=== PATIENT | male | born 1935 | race Caucasian/White ===

== ENCOUNTER → 2016-10-16 | Day surgery (SDC) | payer MEDICARE ==
[~2016-10-16] MED LIST: ACYCLOVIR800 MG PO; AMITIZA8 MCG PO; AUGMENTIN 875875 MG PO; BACTRIM DS 8001 TA1 PO; CEFUROXIME AXE250 MG PO; DOK100 M1 PO; DOXYCYCLINE HY100 M3 PO; DOXYCYCLINE100 M3 PO; DULCOLAX STOOL100 MG PO; FLOMAX0.4 MG PO; HYDROCODONE BIT1 T11 PO; LEVOFLOXACIN500 MG PO; LISINOPRIL10 M1 PO; MACROBID100 M1 PO; MIRALAX POWDER17 G1 PO; MIRALAX17 GM PO; Nizoral 2%15 GM T; Nystatin Cream15 GM T; PRILOSEC20 M1 PO; PRILOSEC20 MG PO; PRINIVIL20 MG PO; SENNA8.6 MG PO; SENOKOT1 TAB PO; TAMSULOSIN HCL0.4 MG PO; TRAMADOL HCL50 MG PO; TRIAMTERENE/HCT1 CAP PO; ULTRAM50 MG PO; VIBRAMYCIN100 MG PO; VICODIN 5/500 505 MG PO
[2016-10-16 10:23] LABS: PROTHROMBIN TIME 10.1 SECONDS (9.0-12.4)
== END | disposition home or self-care (01) ==
LOC: SDC 03:41
PROVIDERS: Family Medicine
DX: E04.1 Nontoxic single thyroid nodule (principal)

== ENCOUNTER → 2017-07-05 | Outpatient (CLI) | payer MEDICARE | END | disposition home or self-care (01) | LOC: LAB 09:16 | DX: R19.5 Other fecal abnormalities (principal) ==

== ENCOUNTER 2018-05-17 12:12 | Emergency (ER) | payer MEDICARE ==
[~2018-05-17] VITALS: Ht 175.2 cm; Wt 108.9 kg
--- NOTE | ~2018-05-17 | EKG ---
[place], [place] ELECTROCARDIOGRAM REPORT NAME: NORMAN GAMEZ UNIT #: [id number] ROOM: DOCTOR: EPIPHANY DRAFT REPORT BIRTHDATE: [birth year] [facility] Test Date: 2018-05-17 Test Time: 12:33:07 Pat Name: NORMAN GAMEZ Department: Room: Gender: Shactor: : 1935 Requested By: POOL BURNS Order Number: [id number] Reading MD: Eduard Birmingham MD Measurements Intervals [place] Rate: 80 P: 0 [place]: 236 QRS: 55 QRSD: 104 T: 22 QT: 374 QTc: 432 Interpretive Statements Sinus rhythm Prolonged [place] interval- first degree block RSR' in V1 or V2, right VCD or RVH Baseline wander in lead(s) V1 Electronically Signed On 05-19-2018 7:21:10 PST by Eduard Birmingham MD CM:EKGRPT:ELECTROCARDIOGRAM REPORT [id number] POOL BURNS EPIPHANY DRAFT REPORT POOL BURNS
[2018-05-17 12:46] LABS: BASO # 0.1 10*3/uL (0.0-0.1); BASO % 1.1 % (0.0-1.0); EOS # 0.1 10*3/uL (0.0-0.4); EOS % 1.4 % (1.0-4.0); HEMATOCRIT 41.5 % (42.0-52.0); HEMOGLOBIN 14.4 g/dl (14.0-18.0); LYMPH # 1.8 10*3/uL (1.3-4.4); LYMPH % 27.5 % (27.0-41.0); MEAN CELL VOLUME 96.1 fl (80.0-94.0); MEAN CORPUSCULAR HGB 33.3 pg (27.0-31.0); MEAN CORPUSCULAR HGB CONC 34.7 g/dl (33.0-37.0); MONO # 0.7 10*3/uL (0.1-1.0); MONO % 10.9 % (3.0-9.0); NEUT # 3.9 10*3/uL (2.3-7.9); NEUT % 58.9 % (47.0-73.0); PLATELET COUNT AUTOMATED 139 10*3/uL (130-400); RED BLOOD COUNT 4.32 10*6/uL (4.50-5.90); RED CELL DISTRI WIDTH 12.6 % (0-14.5); WHITE BLOOD COUNT 6.6 10*3/uL (4.8-10.8)
[2018-05-17 12:55] LABS: ACT PARTIAL THROMBO TIME 24.3 SECONDS (20.8-31.5); INTERNATIONAL NORM RATIO 0.9 (2.0-3.5)
[2018-05-17 13:03] LABS: ALBUMIN 3.8 gm/dl (3.1-4.5); ALKALINE PHOSPHATASE 84 U/L (45-117); BUN 17 mg/dl (7-24); CHLORIDE 104 mmol/L (98-107); CREATININE 1.04 mg/dL (0.70-1.30); POTASSIUM 4.3 mmol/L (3.5-5.1); SGOT/AST 24 IU/L (3-35); SGPT/ALT 37 U/L (12-78); SODIUM 137 mmol/L (136-145); TOTAL PROTEIN 6.6 gm/dL (6.4-8.2); TROPONIN I < 0.015 ng/ml (<0.045)
== END 2018-05-17 14:25 | disposition left against medical advice (07) ==
LOC: ED 12:12
PROVIDERS: Nurse Practitioner Family
DX: R53.1 Weakness (principal); R20.0 Anesthesia of skin; R79.1 Abnormal coagulation profile; Z79.899 Other long term (current) drug therapy

== ENCOUNTER → 2018-06-05 | Outpatient (CLI) | payer MEDICARE | END | disposition home or self-care (01) | LOC: CT 08:00 | DX: N28.1 Cyst of kidney, acquired (principal); K57.30 Diverticulosis of large intestine without perforation or abscess without bleeding; N32.3 Diverticulum of bladder; K76.89 Other specified diseases of liver; K59.00 Constipation, unspecified; Z90.49 Acquired absence of other specified parts of digestive tract ==

== ENCOUNTER → 2018-07-18 | Day surgery (SDC) | payer MEDICARE ==
[~2018-07-18] VITALS: Ht 175.2 cm; Wt 104.3 kg
[~2018-07-18] MED LIST changes: +COLACE100 MG PO
--- NOTE | ~2018-07-18 | O ---
[place], [place] OPERATIVE NOTE NAME: NORMAN GAMEZ UNIT #: [id number] ROOM: DOCTOR: MARBELLA RIVERA,[facility] BIRTHDATE: [birth year] DOS: 07/18/2018 INDICATIONS: This is an 82-year-old patient who presented with chief complaint of constipation, dyspepsia, history of partial colectomy. ALLERGIES: No known medication. FAMILY HISTORY: Noncontributory. PAST SURGICAL HISTORY: Colon surgery, details unknown. PAST MEDICAL HISTORY: Hypertension and BPH. SOCIAL HISTORY: Nonsmoker. Alcohol consumer. PROCEDURE: Today's procedure part of investigation is panendoscopy and colonoscopy. PREMEDICATION: Propofol. SCOPE: Olympus forward-viewing gastroscope Q10 video. REPORT: After putting the patient in left lateral position and application of lubricant to the scope, the scope was introduced. Thereafter, under direct visualization, I advanced through the length of the esophagus without difficulty. A 3.5 cm hiatal hernia was noticed. Gastric pouch was entered. Gastritis seen. Antral biopsy obtained. Duodenal bulb, second and third part within normal limits. The patient was gradually extubated and tolerated the procedure well. IMPRESSION: Gastritis, status post biopsy, hiatal hernia. PLAN AND DISCUSSION: Elevation of the head of the bed 6 inch all time, continuation with Prilosec, decreasing alcohol consumption and follow up as outpatient. Antireflux is requested. Gaviscon as antacid of choice. INDICATIONS: The patient has presented with chief complaint of constipation, status post colonic surgery in the past. PROCEDURE: Today's procedure part of investigation is colonoscopy and photographic series. PREMEDICATION: Propofol. SCOPE: Olympus forward-viewing colonoscope 10L video. REPORT: After putting the patient in left lateral position and application of lubricant to rectal pouch and digital examination, scope was introduced. Thereafter, under direct visualization, advanced through the length of colon without difficulty. Diverticulosis of sigmoid colon was noticed anastomotic [place], [place] OPERATIVE NOTE NAME: NORMAN GAMEZ [place] UNIT #: [id number] ROOM: DOCTOR: MARBELLA RIVERA,[facility] BIRTHDATE: [birth year] site about splenic anatomy was noticed, which appears to be benign diversion of the anastomotic site was noticed. Base of the cecum explored, appendiceal orifice and ileocecal valve intact was photographed. The patient was gradually extubated and tolerated the procedure well. PLAN AND DISCUSSION: Diverticulosis, otherwise, status post anastomotic site, which is benign in colon as far as constipation is concerned, I am going to advise this patient to reduce his alcohol and increases vegetables and fruits in the diet and Colace 100 mg daily to begin with; otherwise, 200 mg at bedtime with suffice management. TREVOR TYSON MD CM:OPRECORD:OPERATIVE NOTE [id number] TREVOR TYSON MD 07/18/18 1154 interface
[2018-07-18 11:28] VITALS: BP 114/67
[2018-07-18 11:43] VITALS: BP 119/53
[2018-07-18 12:00] VITALS: BP 110/59
== END | disposition home or self-care (01) ==
LOC: SDC 07-15 08:45
DX: K57.30 Diverticulosis of large intestine without perforation or abscess without bleeding (principal); K29.50 Unspecified chronic gastritis without bleeding; K44.9 Diaphragmatic hernia without obstruction or gangrene; I10 Essential (primary) hypertension; K21.9 Gastro-esophageal reflux disease without esophagitis; E66.9 Obesity, unspecified; Z68.33 Body mass index [BMI] 33.0-33.9, adult; Z96.643 Presence of artificial hip joint, bilateral; Z98.890 Other specified postprocedural states; Z79.899 Other long term (current) drug therapy; Z72.89 Other problems related to lifestyle; Z87.440 Personal history of urinary (tract) infections; Z90.49 Acquired absence of other specified parts of digestive tract; Z83.3 Family history of diabetes mellitus

== ENCOUNTER 2018-12-08 20:14 | Emergency (ER) | payer MEDICARE ==
[~2018-12-08] VITALS: Ht 175.2 cm; Wt 106.6 kg
[2018-12-08 22:10] LABS: BILIRUBIN NEGATIVE (NEGATIVE); BLOOD 2+ (NEGATIVE); CLARITY CLOUDY (CLEAR); COLOR YELLOW (YELLOW); GLUCOSE NEGATIVE (NEGATIVE); KETONE NEGATIVE (NEGATIVE); LEUKO ESTERASE 2+ (NEGATIVE); NITRITE NEGATIVE (NEGATIVE); UROBILINOGEN 0.2 E.U./dl (0.2-1.0)
[2018-12-08 23:15] LABS: BACTERIA 4+; RBC 31-40 rbc/hpf (0-2); WBC 21-30 wbc/hpf (0-5)
[2018-12-09] MEDS ORDERED: LEVOFLOXACIN500 MG PO (02:04)
== END 2018-12-09 02:04 | disposition home or self-care (01) ==
LOC: ED 20:14
PROVIDERS: Emergency Medicine Emergency Medical Services
DX: R33.9 Retention of urine, unspecified (principal); N39.0 Urinary tract infection, site not specified; N40.0 Benign prostatic hyperplasia without lower urinary tract symptoms; K21.9 Gastro-esophageal reflux disease without esophagitis; I10 Essential (primary) hypertension; Z90.49 Acquired absence of other specified parts of digestive tract; Z98.890 Other specified postprocedural states; Z96.641 Presence of right artificial hip joint; Z79.899 Other long term (current) drug therapy

== ENCOUNTER 2018-12-31 19:01 | Emergency (ER) | payer MEDICARE ==
[~2018-12-31] VITALS: Wt 103.9 kg
[2018-12-31 19:36] LABS: BASO # 0.1 10*3/uL (0.0-0.1); BASO % 0.7 % (0.0-1.0); EOS # 0.1 10*3/uL (0.0-0.4); EOS % 1.4 % (1.0-4.0); HEMOGLOBIN 13.6 g/dl (14.0-18.0); LYMPH % 11.6 % (27.0-41.0); MEAN CELL VOLUME 98.5 fl (80.0-94.0); MEAN CORPUSCULAR HGB 33.5 pg (27.0-31.0); MEAN PLATELET VOLUME 11.1 fl (9.6-12.3); MONO # 0.9 10*3/uL (0.1-1.0); NEUT # 6.7 10*3/uL (2.3-7.9); NEUT % 76.1 % (47.0-73.0); PLATELET COUNT AUTOMATED 139 10*3/uL (130-400); RED BLOOD COUNT 4.06 10*6/uL (4.50-5.90); RED CELL DISTRI WIDTH 12.9 % (0-14.5); WHITE BLOOD COUNT 8.8 10*3/uL (4.8-10.8)
[2018-12-31 19:53] LABS: ALBUMIN 3.5 gm/dl (3.1-4.5); ALKALINE PHOSPHATASE 95 U/L (45-117); BUN 22 mg/dl (7-24); CHLORIDE 109 mmol/L (98-107); CREATININE 1.13 mg/dL (0.70-1.30); POTASSIUM 4.5 mmol/L (3.5-5.1); SGOT/AST 23 IU/L (3-35); SGPT/ALT 49 U/L (12-78); SODIUM 141 mmol/L (136-145); TOTAL PROTEIN 6.1 gm/dL (6.4-8.2)
== END 2018-12-31 21:16 | disposition home or self-care (01) ==
LOC: ED 19:01
PROVIDERS: Physician Assistant
DX: E86.0 Dehydration (principal); Z79.899 Other long term (current) drug therapy

== ENCOUNTER 2019-02-13 06:00 | Emergency (ER) | payer MEDICARE ==
[~2019-02-13] VITALS: Ht 175.2 cm; Wt 104.3 kg
--- NOTE | ~2019-02-13 | EKG ---
[place], [place] ELECTROCARDIOGRAM REPORT NAME: NORMAN GAMEZ UNIT #: [id number] ROOM: DOCTOR: EPIPHANY DRAFT REPORT BIRTHDATE: [birth year] [facility] Test Date: 2019-02-13 Test Time: 06:44:28 Pat Name: NORMAN GAMEZ Department: Room: Gender: Operations Chief: Tatyana Waldron : 1935 Requested By: MANUEL RESENDIZ Order Number: [id number] Reading MD: Martita Lakhani MD Measurements Intervals [place] Rate: 61 P: 55 [place]: 266 QRS: 63 QRSD: 105 T: 28 QT: 419 QTc: 422 Interpretive Statements Sinus rhythm Ventricular premature complex Prolonged [place] interval Baseline wander in lead(s) II,III,aVF Compared to ECG 05/17/2018 12:33:07 Ventricular premature complex(es) now present Right ventricular hypertrophy no longer present Electronically Signed On 02-13-2019 13:03:06 PDT by Martita Lakhani MD CM:EKGRPT:ELECTROCARDIOGRAM REPORT [id number] MANUEL RESENDIZ MD EPIPHANY DRAFT REPORT MANUEL RESENDIZ MD
[2019-02-13 06:43] LABS: BILIRUBIN NEGATIVE (NEGATIVE); BLOOD 2+ (NEGATIVE); CLARITY CLOUDY (CLEAR); COLOR YELLOW (YELLOW); GLUCOSE NEGATIVE (NEGATIVE); KETONE NEGATIVE (NEGATIVE); LEUKO ESTERASE 3+ (NEGATIVE); NITRITE NEGATIVE (NEGATIVE); UROBILINOGEN 0.2 E.U./dl (0.2-1.0)
[2019-02-13 06:55] LABS: WBC TNTC wbc/hpf (0-5)
[2019-02-13 06:56] LABS: BACTERIA 3+
[2019-02-13 07:02] LABS: BASO # 0.1 10*3/uL (0.0-0.1); BASO % 0.9 % (0.0-1.0); EOS # 0.2 10*3/uL (0.0-0.4); EOS % 3.2 % (1.0-4.0); HEMATOCRIT 43.9 % (42.0-52.0); HEMOGLOBIN 14.6 g/dl (14.0-18.0); LYMPH # 2.3 10*3/uL (1.3-4.4); LYMPH % 31.4 % (27.0-41.0); MEAN CELL VOLUME 99.8 fl (80.0-94.0); MEAN CORPUSCULAR HGB 33.2 pg (27.0-31.0); MEAN CORPUSCULAR HGB CONC 33.3 g/dl (33.0-37.0); MEAN PLATELET VOLUME 11.1 fl (9.6-12.3); MONO % 12.9 % (3.0-9.0); NEUT # 3.8 10*3/uL (2.3-7.9); NEUT % 51.5 % (47.0-73.0); PLATELET COUNT AUTOMATED 140 10*3/uL (130-400); RED CELL DISTRI WIDTH 13.2 % (0-14.5); WHITE BLOOD COUNT 7.5 10*3/uL (4.8-10.8)
[2019-02-13 07:11] LABS: ACT PARTIAL THROMBO TIME 24.4 SECONDS (20.0-32.1); INTERNATIONAL NORM RATIO 0.9 (2.0-3.5)
[2019-02-13 07:24] LABS: ALBUMIN 3.5 gm/dl (3.1-4.5); ALKALINE PHOSPHATASE 112 U/L (45-117); BUN 24 mg/dl (7-24); CHLORIDE 105 mmol/L (98-107); CREATININE 1.19 mg/dL (0.70-1.30); LIPASE 95 U/L (73-393); POTASSIUM 4.3 mmol/L (3.5-5.1); SGOT/AST 31 IU/L (3-35); SGPT/ALT 55 U/L (12-78); SODIUM 137 mmol/L (136-145); TOTAL PROTEIN 6.6 gm/dL (6.4-8.2)
[2019-02-13 07:28] LABS: TROPONIN I < 0.015 ng/ml (<0.045)
[2019-02-13] MEDS ORDERED: CIPRO500 MG PO (07:37)
== END 2019-02-13 08:42 | disposition home or self-care (01) ==
LOC: ED 06:00
PROVIDERS: Emergency Medicine Emergency Medical Services
DX: N39.0 Urinary tract infection, site not specified (principal); I10 Essential (primary) hypertension; K21.9 Gastro-esophageal reflux disease without esophagitis; R79.1 Abnormal coagulation profile; Z79.899 Other long term (current) drug therapy

== ENCOUNTER 2019-04-02 13:34 | Emergency (ER) | payer MEDICARE ==
[~2019-04-02] VITALS: Ht 175.2 cm; Wt 102.1 kg
[~2019-04-02 13:34] MED LIST changes: +CIPRO500 MG PO
[2019-04-02 15:15] LABS: BASO # 0.1 10*3/uL (0.0-0.1); BASO % 0.7 % (0.0-1.0); EOS # 0.1 10*3/uL (0.0-0.4); EOS % 1.3 % (1.0-4.0); HEMATOCRIT 43.5 % (42.0-52.0); HEMOGLOBIN 14.9 g/dl (14.0-18.0); LYMPH # 2.3 10*3/uL (1.3-4.4); LYMPH % 26.9 % (27.0-41.0); MEAN CELL VOLUME 96.7 fl (80.0-94.0); MEAN CORPUSCULAR HGB 33.1 pg (27.0-31.0); MEAN CORPUSCULAR HGB CONC 34.3 g/dl (33.0-37.0); MEAN PLATELET VOLUME 11.1 fl (9.6-12.3); MONO % 11.1 % (3.0-9.0); NEUT # 5.2 10*3/uL (2.3-7.9); NEUT % 59.8 % (47.0-73.0); PLATELET COUNT AUTOMATED 167 10*3/uL (130-400); RED CELL DISTRI WIDTH 12.9 % (0-14.5); WHITE BLOOD COUNT 8.7 10*3/uL (4.8-10.8)
[2019-04-02 15:32] LABS: ALBUMIN 3.9 gm/dl (3.1-4.5); ALKALINE PHOSPHATASE 111 U/L (45-117); BUN 12 mg/dl (7-24); CHLORIDE 101 mmol/L (98-107); CREATININE 1.08 mg/dL (0.70-1.30); LIPASE 75 U/L (73-393); POTASSIUM 4.1 mmol/L (3.5-5.1); SGOT/AST 24 IU/L (3-35); SGPT/ALT 40 U/L (12-78); SODIUM 133 mmol/L (136-145)
[2019-04-02 15:33] LABS: INTERNATIONAL NORM RATIO 0.9 (2.0-3.5)
[2019-04-02 15:47] LABS: BILIRUBIN NEGATIVE (NEGATIVE); BLOOD 2+ (NEGATIVE); CLARITY CLOUDY (CLEAR); COLOR YELLOW (YELLOW); GLUCOSE NEGATIVE (NEGATIVE); KETONE TRACE (NEGATIVE); SPECIFIC GRAVITY 1.005 (1.005-1.030)
[2019-04-02 15:48] LABS: BACTERIA 4+; LEUKO ESTERASE 3+ (NEGATIVE); NITRITE NEGATIVE (NEGATIVE); UROBILINOGEN 0.2 E.U./dl (0.2-1.0); WBC TNTC wbc/hpf (0-5)
[2019-04-02] MEDS ORDERED: KEFLEX500 M1 PO (19:09)
== END 2019-04-02 20:14 | disposition home or self-care (01) ==
LOC: ED 13:34
PROVIDERS: Nurse Practitioner
DX: K76.89 Other specified diseases of liver (principal); N30.90 Cystitis, unspecified without hematuria; Z79.899 Other long term (current) drug therapy

== ENCOUNTER 2019-04-04 17:32 | Emergency (ER) | payer MEDICARE ==
[~2019-04-04] VITALS: Ht 175.2 cm; Wt 102.1 kg
[~2019-04-04 17:32] MED LIST changes: +KEFLEX500 M1 PO
[2019-04-04] MEDS ORDERED: CIPRO500 MG PO (18:14)
== END 2019-04-04 18:22 | disposition home or self-care (01) ==
LOC: ED 17:32
DX: N39.0 Urinary tract infection, site not specified (principal); K21.9 Gastro-esophageal reflux disease without esophagitis; I10 Essential (primary) hypertension; Z79.899 Other long term (current) drug therapy; Z90.49 Acquired absence of other specified parts of digestive tract

== ENCOUNTER 2019-09-07 17:22 | Observation (INO) | payer MEDICARE ==
[~2019-09-07] VITALS: Ht 175.2 cm; Wt 105.4 kg
[2019-09-07 18:03] LABS: BASO # 0.1 10*3/uL (0.0-0.1); BASO % 0.9 % (0.0-1.0); EOS # 0.1 10*3/uL (0.0-0.4); EOS % 1.8 % (1.0-4.0); HEMATOCRIT 40.8 % (42.0-52.0); HEMOGLOBIN 13.8 g/dl (14.0-18.0); LYMPH # 2.3 10*3/uL (1.3-4.4); LYMPH % 28.7 % (27.0-41.0); MEAN CELL VOLUME 97.6 fl (80.0-94.0); MEAN CORPUSCULAR HGB CONC 33.8 g/dl (33.0-37.0); MEAN PLATELET VOLUME 11.2 fl (9.6-12.3); NEUT # 4.5 10*3/uL (2.3-7.9); NEUT % 56.5 % (47.0-73.0); PLATELET COUNT AUTOMATED 142 10*3/uL (130-400); RED BLOOD COUNT 4.18 10*6/uL (4.50-5.90); RED CELL DISTRI WIDTH 13.1 % (0-14.5); WHITE BLOOD COUNT 7.9 10*3/uL (4.8-10.8)
[2019-09-07 18:13] LABS: ACT PARTIAL THROMBO TIME 24.7 SECONDS (20.0-32.1); INTERNATIONAL NORM RATIO 0.9 (2.0-3.5)
[2019-09-07 18:20] LABS: ALBUMIN 3.6 gm/dl (3.1-4.5); ALKALINE PHOSPHATASE 87 U/L (45-117); BUN 15 mg/dl (7-24); CHLORIDE 105 mmol/L (98-107); CREATININE 1.13 mg/dL (0.70-1.30); POTASSIUM 3.8 mmol/L (3.5-5.1); SGOT/AST 25 IU/L (3-35); SGPT/ALT 44 U/L (12-78); SODIUM 136 mmol/L (136-145); TOTAL PROTEIN 6.4 gm/dL (6.4-8.2)
[2019-09-07 18:25] LABS: TROPONIN I < 0.015 ng/ml (<0.045)
[2019-09-07 18:40] VITALS: BP 124/58
[2019-09-07] MEDS ORDERED: MILK OF MA400 MG/5 M PO (19:12)
[2019-09-07 20:00] VITALS: BP 155/67
--- NOTE | 2019-09-07 20:00 | NUR ---
A 83, admitted to 4E, under the services of JANIE Painter MD with a diagnosis of CHEST PAIN. Chief complaint is LEFT ARM AND HAND PAIN. Patient arrived via ambulatory from ER. Monitor applied. Initial assessment completed. Vital signs taken and recorded. JANIE PAINTER MD notified of admission to the unit. Orders received. See assessment for past medical history, medications and allergies. Patient and/or family oriented to unit. visitation policy reviewed. Clothing/patient valuable form completed. YANET SANTIAGO
[2019-09-07 20:30] VITALS: BP 155/67
[2019-09-08] VITALS: BP 129/51
[2019-09-08 06:53] LABS: BASO % 0.7 % (0.0-1.0); EOS # 0.2 10*3/uL (0.0-0.4); EOS % 2.6 % (1.0-4.0); HEMATOCRIT 42.3 % (42.0-52.0); LYMPH # 1.8 10*3/uL (1.3-4.4); LYMPH % 30.6 % (27.0-41.0); MEAN CELL VOLUME 98.1 fl (80.0-94.0); MEAN CORPUSCULAR HGB 32.5 pg (27.0-31.0); MEAN CORPUSCULAR HGB CONC 33.1 g/dl (33.0-37.0); MEAN PLATELET VOLUME 11.7 fl (9.6-12.3); MONO # 0.7 10*3/uL (0.1-1.0); NEUT # 3.2 10*3/uL (2.3-7.9); NEUT % 53.9 % (47.0-73.0); PLATELET COUNT AUTOMATED 125 10*3/uL (130-400); RED BLOOD COUNT 4.31 10*6/uL (4.50-5.90); RED CELL DISTRI WIDTH 12.9 % (0-14.5); WHITE BLOOD COUNT 5.9 10*3/uL (4.8-10.8)
[2019-09-08 07:13] LABS: BUN 13 mg/dl (7-24); CHLORIDE 107 mmol/L (98-107); CHOLESTEROL 181 mg/dL (<200); CREATININE 1.01 mg/dL (0.70-1.30); HDL CHOLESTEROL 61 mg/dl (40-60); LDL CHOLESTEROL 101 mg/dL (9-159); POTASSIUM 4.2 mmol/L (3.5-5.1); SODIUM 139 mmol/L (136-145); TRIGLYCERIDES 97 mg/dl (<150); VLDL CHOLESTEROL 19 mg/dL (6-40)
[2019-09-08 07:34] LABS: VITAMIN D, 25-HYDROXY 16.7 ng/mL (30-100)
--- NOTE | 2019-09-08 09:00 | NUR ---
Waistline Joiner Lockstitch in to talk to patient. Patient states lives at home with . There are two steps in the home. Physician: antonio wallace Pharmacy: [facility] Home health services: none Patient's level of ADLs: INDEPENDENT Patient has working utilities: all working DME: none Follow-up physician's appointment after d/c: will be made by hospitalist nurse director upon discharge Does patient want to access PORTAL?: no Discharge plan discussed with patient, patient is states he lives at home with his , he is independent in adls and ambulation, drives, he is very upset at this time due to not having his testing done yet this morning, patient states he will sign himself out if nothing is done in the next few minutes, attempted to calm patient and also notified his nurse to check on the time of his testing, case management will follow for any home needs . TAMARA NELSON
[2019-09-08] MEDS ORDERED: ATORVASTATIN CA20 M1 PO (10:17)
[2019-09-08] MEDS ORDERED: NITROSTAT0.4 MG SL (10:17)
--- NOTE | 2019-09-08 11:01 | NUR ---
[facility] Discharge instructions reviewed with patient/family. Patient receptive and verbalizes understanding. Follow-up care arranged. Written instructions given to patient/family. MICHEAL AGUILAR
== END 2019-09-08 11:01 | disposition home or self-care (01) ==
LOC: ED 17:22 → EDHOLD 19:23 → 4E 19:23
PROVIDERS: Emergency Medicine; Student in an Organized Health Care Education/Training Program; ADMIT Family Medicine
DX: I44.0 Atrioventricular block, first degree (principal); R00.1 Bradycardia, unspecified; M79.602 Pain in left arm; R73.9 Hyperglycemia, unspecified; N40.0 Benign prostatic hyperplasia without lower urinary tract symptoms; D53.9 Nutritional anemia, unspecified; I10 Essential (primary) hypertension; K21.9 Gastro-esophageal reflux disease without esophagitis; I65.21 Occlusion and stenosis of right carotid artery; E83.41 Hypermagnesemia; N40.1 Benign prostatic hyperplasia with lower urinary tract symptoms

== ENCOUNTER 2019-11-13 13:34 | Emergency (ER) | payer MEDICARE ==
[~2019-11-13] VITALS: Ht 175.2 cm; Wt 108.9 kg
[~2019-11-13 13:34] MED LIST changes: +ATORVASTATIN CA20 M1 PO; +MILK OF MA400 MG/5 M PO; +NITROSTAT0.4 MG SL
[2019-11-13 14:07] LABS: BASO # 0.1 10*3/uL (0.0-0.1); BASO % 0.9 % (0.0-1.0); EOS # 0.1 10*3/uL (0.0-0.4); EOS % 1.3 % (1.0-4.0); HEMATOCRIT 44.3 % (42.0-52.0); LYMPH # 1.9 10*3/uL (1.3-4.4); LYMPH % 28.6 % (27.0-41.0); MEAN CELL VOLUME 99.1 fl (80.0-94.0); MEAN CORPUSCULAR HGB 33.1 pg (27.0-31.0); MEAN CORPUSCULAR HGB CONC 33.4 g/dl (33.0-37.0); MEAN PLATELET VOLUME 11.2 fl (9.6-12.3); MONO # 0.9 10*3/uL (0.1-1.0); MONO % 12.7 % (3.0-9.0); NEUT # 3.8 10*3/uL (2.3-7.9); NEUT % 56.4 % (47.0-73.0); PLATELET COUNT AUTOMATED 148 10*3/uL (130-400); RED BLOOD COUNT 4.47 10*6/uL (4.50-5.90); WHITE BLOOD COUNT 6.8 10*3/uL (4.8-10.8)
[2019-11-13 14:16] LABS: INTERNATIONAL NORM RATIO 0.9 (2.0-3.5)
[2019-11-13 14:24] LABS: ALBUMIN 3.7 gm/dl (3.1-4.5); ALKALINE PHOSPHATASE 96 U/L (45-117); BUN 15 mg/dl (7-24); CHLORIDE 106 mmol/L (98-107); CREATININE 0.99 mg/dL (0.70-1.30); POTASSIUM 4.2 mmol/L (3.5-5.1); SGOT/AST 28 IU/L (3-35); SGPT/ALT 58 U/L (12-78); SODIUM 140 mmol/L (136-145); TOTAL PROTEIN 6.6 gm/dL (6.4-8.2)
[2019-11-13 14:31] LABS: TROPONIN I < 0.015 ng/ml (<0.045)
== END 2019-11-13 15:12 | disposition home or self-care (01) ==
LOC: ED 13:34
PROVIDERS: Emergency Medicine
DX: R42 Dizziness and giddiness (principal); R55 Syncope and collapse; I10 Essential (primary) hypertension; E78.00 Pure hypercholesterolemia, unspecified; K21.9 Gastro-esophageal reflux disease without esophagitis; Z79.899 Other long term (current) drug therapy; Z87.891 Personal history of nicotine dependence

== ENCOUNTER → 2019-12-31 | Outpatient (CLI) | payer MEDICARE | END | disposition home or self-care (01) | LOC: RAD 11:28 | DX: M25.552 Pain in left hip (principal); M54.5 Low back pain; M99.03 Segmental and somatic dysfunction of lumbar region; R26.2 Difficulty in walking, not elsewhere classified ==

== ENCOUNTER 2020-03-15 19:10 | Emergency (ER) | payer MEDICARE ==
[~2020-03-15] VITALS: Ht 175.2 cm; Wt 104.3 kg
[2020-03-15] MEDS ORDERED: CORTISPORIN SUS10 ML OT (19:53)
== END 2020-03-15 20:10 | disposition home or self-care (01) ==
LOC: ED 19:10
DX: S09.22XA Traumatic rupture of left ear drum, initial encounter (principal); K21.9 Gastro-esophageal reflux disease without esophagitis; I10 Essential (primary) hypertension; X58.XXXA Exposure to other specified factors, initial encounter; Y93.89 Activity, other specified; Y92.89 Other specified places as the place of occurrence of the external cause; Y99.8 Other external cause status

== ENCOUNTER 2020-07-13 22:03 | Emergency (ER) | payer MEDICARE ==
[~2020-07-13] VITALS: Ht 175.2 cm; Wt 104.3 kg
[~2020-07-13 22:03] MED LIST changes: +CORTISPORIN SUS10 ML OT
[2020-07-14] MEDS ORDERED: ZITHROMAX250 MG PO ×2 (00:18→01:33)
[2020-07-14 00:49] LABS: BASO # 0.1 10*3/uL (0.0-0.1); BASO % 0.9 % (0.0-1.0); EOS # 0.2 10*3/uL (0.0-0.4); EOS % 2.6 % (1.0-4.0); HEMATOCRIT 43.2 % (42.0-52.0); LYMPH # 2.5 10*3/uL (1.3-4.4); LYMPH % 35.5 % (27.0-41.0); MEAN CELL VOLUME 98.4 fl (80.0-94.0); MEAN CORPUSCULAR HGB 32.3 pg (27.0-31.0); MEAN CORPUSCULAR HGB CONC 32.9 g/dl (33.0-37.0); MONO % 14.2 % (3.0-9.0); NEUT # 3.3 10*3/uL (2.3-7.9); NEUT % 46.7 % (47.0-73.0); PLATELET COUNT AUTOMATED 157 10*3/uL (130-400); RED BLOOD COUNT 4.39 10*6/uL (4.50-5.90); RED CELL DISTRI WIDTH 13.1 % (0-14.5)
[2020-07-14 01:15] LABS: ALBUMIN 3.5 gm/dl (3.1-4.5); ALKALINE PHOSPHATASE 98 U/L (45-117); BUN 19 mg/dl (7-24); CHLORIDE 108 mmol/L (98-107); CREATININE 1.05 mg/dL (0.70-1.30); POTASSIUM 4.3 mmol/L (3.5-5.1); SGOT/AST 29 IU/L (3-35); SGPT/ALT 56 U/L (12-78); SODIUM 140 mmol/L (136-145); TOTAL PROTEIN 6.2 gm/dL (6.4-8.2)
== END 2020-07-14 02:41 | disposition home or self-care (01) ==
LOC: ED 22:03
PROVIDERS: Physician Assistant
DX: J18.9 Pneumonia, unspecified organism (principal); Z20.828 Contact with and (suspected) exposure to other viral communicable diseases; Z79.899 Other long term (current) drug therapy; Z87.891 Personal history of nicotine dependence

== ENCOUNTER 2020-10-15 00:07 | Emergency (ER) | payer MEDICARE ==
[~2020-10-15] VITALS: Ht 175.2 cm; Wt 99.8 kg
[~2020-10-15 00:07] MED LIST changes: +ZITHROMAX250 MG PO
[2020-10-15 03:22] LABS: BILIRUBIN Negative (Negative); BLOOD 2+ (Negative); CLARITY Cloudy (Clear); COLOR Yellow (Yellow); GLUCOSE Negative (Negative); KETONE Negative (Negative); LEUKO ESTERASE 2+ (Negative); NITRITE Negative (Negative); PH 5.5 (4.5-8.0); SPECIFIC GRAVITY 1.015 (1.001-1.030); UROBILINOGEN 0.2 E.U./dl (0.0-1.0)
[2020-10-15 04:19] LABS: BACTERIA 2+; MUCOUS 1+; WBC 16-20 wbc/hpf (0-5)
[2020-10-15] MEDS ORDERED: CEPHALEXIN500 M1 PO (05:40)
== END 2020-10-15 05:37 | disposition home or self-care (01) ==
LOC: ED 00:07
PROVIDERS: Emergency Medicine
DX: R33.9 Retention of urine, unspecified (principal); N39.0 Urinary tract infection, site not specified; Z79.899 Other long term (current) drug therapy; Z98.890 Other specified postprocedural states; Z96.641 Presence of right artificial hip joint; Z87.891 Personal history of nicotine dependence

== ENCOUNTER 2020-10-23 06:19 | Emergency (ER) | payer MEDICARE ==
[~2020-10-23] VITALS: Ht 170.1 cm; Wt 99.8 kg
[~2020-10-23 06:19] MED LIST changes: +CEPHALEXIN500 M1 PO
[2020-10-23 07:22] LABS: BASO # 0.1 10*3/uL (0.0-0.1); BASO % 0.9 % (0.0-1.0); EOS # 0.2 10*3/uL (0.0-0.4); HEMATOCRIT 45.3 % (42.0-52.0); LYMPH # 2.5 10*3/uL (1.3-4.4); LYMPH % 33.3 % (27.0-41.0); MEAN CELL VOLUME 98.9 fl (80.0-94.0); MEAN CORPUSCULAR HGB 32.5 pg (27.0-31.0); MEAN CORPUSCULAR HGB CONC 32.9 g/dl (33.0-37.0); MEAN PLATELET VOLUME 11.2 fl (9.6-12.3); MONO # 0.9 10*3/uL (0.1-1.0); MONO % 12.4 % (3.0-9.0); NEUT # 3.8 10*3/uL (2.3-7.9); NEUT % 50.3 % (47.0-73.0); PLATELET COUNT AUTOMATED 145 10*3/uL (130-400); RED BLOOD COUNT 4.58 10*6/uL (4.50-5.90); RED CELL DISTRI WIDTH 12.6 % (0-14.5); WHITE BLOOD COUNT 7.6 10*3/uL (4.8-10.8)
[2020-10-23 07:30] LABS: BUN 14 mg/dl (7-24); CHLORIDE 106 mmol/L (98-107); CREATININE 0.96 mg/dL (0.70-1.30); POTASSIUM 4.2 mmol/L (3.5-5.1); SODIUM 137 mmol/L (136-145)
[2020-10-23 08:58] LABS: BILIRUBIN Negative (Negative); BLOOD 1+ (Negative); CLARITY Clear (Clear); COLOR Yellow (Yellow); GLUCOSE Negative (Negative); KETONE Negative (Negative); LEUKO ESTERASE 2+ (Negative); NITRITE Negative (Negative); PH 5.5 (4.5-8.0); UROBILINOGEN 0.2 E.U./dl (0.0-1.0)
[2020-10-23 09:10] LABS: EPITHELIAL CELLS 21-30; RBC 16-20 rbc/hpf (0-2); WBC 31-40 wbc/hpf (0-5)
[2020-10-23 09:11] LABS: BACTERIA 2+; MUCOUS 1+
[2020-10-23] MEDS ORDERED: MACROBID100 M1 PO (09:31)
== END 2020-10-23 09:35 | disposition home or self-care (01) ==
LOC: ED 06:19
PROVIDERS: Internal Medicine
DX: R39.12 Poor urinary stream (principal); Z79.899 Other long term (current) drug therapy; Z98.890 Other specified postprocedural states; Z96.641 Presence of right artificial hip joint; Z87.891 Personal history of nicotine dependence

== ENCOUNTER 2020-10-23 22:35 | Emergency (ER) | payer MEDICARE | END 2020-10-23 23:35 | disposition home or self-care (01) | LOC: ED 22:35 | DX: R39.12 Poor urinary stream (principal) ==

== ENCOUNTER 2021-01-02 23:05 | Emergency (ER) | payer MEDICARE ==
[~2021-01-02] VITALS: Wt 104.3 kg
== END 2021-01-03 01:21 | disposition home or self-care (01) ==
LOC: ED 23:05
DX: M54.5 Low back pain (principal); Z79.899 Other long term (current) drug therapy; Z98.890 Other specified postprocedural states; Z96.641 Presence of right artificial hip joint

== ENCOUNTER 2021-02-21 17:34 | Inpatient (IN) | payer MEDICARE ==
[~2021-02-21] VITALS: Ht 175.2 cm; Wt 106.6 kg
[2021-02-21 18:34] VITALS: BP 131/67
[2021-02-21 20:10] LABS: MEAN CELL VOLUME 100.7 fl (80.0-94.0); MEAN CORPUSCULAR HGB 33.4 pg (27.0-31.0); MEAN CORPUSCULAR HGB CONC 33.2 g/dl (33.0-37.0); MEAN PLATELET VOLUME 11.4 fl (9.6-12.3); PLATELET COUNT AUTOMATED 148 10*3/uL (130-400); RED BLOOD COUNT 4.37 10*6/uL (4.50-5.90); RED CELL DISTRI WIDTH 13.3 % (0-14.5)
[2021-02-21 20:21] LABS: BILIRUBIN Negative (Negative); BLOOD 2+ (Negative); CLARITY Turbid (Clear); COLOR Yellow (Yellow); GLUCOSE Negative (Negative); KETONE Trace (Negative); LEUKO ESTERASE 3+ (Negative); NITRITE Negative (Negative); PH 5.5 (4.5-8.0); SPECIFIC GRAVITY 1.025 (1.001-1.030)
[2021-02-21 20:26] LABS: ALBUMIN 3.7 gm/dl (3.1-4.5); ALKALINE PHOSPHATASE 125 U/L (45-117); BUN 19 mg/dl (7-24); CHLORIDE 107 mmol/L (98-107); CREATININE 0.88 mg/dL (0.70-1.30); POTASSIUM 3.9 mmol/L (3.5-5.1); SGOT/AST 22 IU/L (3-35); SGPT/ALT 58 U/L (12-78); SODIUM 139 mmol/L (136-145); TOTAL PROTEIN 6.8 gm/dL (6.4-8.2)
[2021-02-21 20:29] LABS: BASOPHILS 2 % (0-1); TOTAL CELLS COUNTED 100 #CELLS
[2021-02-21 20:30] LABS: PLATELET SUFFICIENCY NORMAL (NORMAL)
[2021-02-21 20:40] LABS: BACTERIA 4+; WBC TNTC wbc/hpf (0-5)
[2021-02-21 21:13] VITALS: BP 115/63
[2021-02-21 22:24] VITALS: BP 134/62
[2021-02-21 23:15] VITALS: BP 138/70
[2021-02-22 03:29] VITALS: BP 124/62
[2021-02-22 05:55] LABS: ALBUMIN 3.1 gm/dl (3.1-4.5); ALKALINE PHOSPHATASE 104 U/L (45-117); BUN 18 mg/dl (7-24); CHLORIDE 107 mmol/L (98-107); CREATININE 0.79 mg/dL (0.70-1.30); POTASSIUM 4.2 mmol/L (3.5-5.1); SGOT/AST 13 IU/L (3-35); SGPT/ALT 44 U/L (12-78); SODIUM 139 mmol/L (136-145); TOTAL PROTEIN 5.6 gm/dL (6.4-8.2)
[2021-02-22 05:57] VITALS: BP 128/80
[2021-02-22 06:11] LABS: BASO % 0.3 % (0.0-1.0); EOS % 0.1 % (1.0-4.0); HEMATOCRIT 40.1 % (42.0-52.0); LYMPH # 2.1 10*3/uL (1.3-4.4); LYMPH % 14.4 % (27.0-41.0); MEAN CELL VOLUME 102.6 fl (80.0-94.0); MEAN CORPUSCULAR HGB 33.8 pg (27.0-31.0); MEAN CORPUSCULAR HGB CONC 32.9 g/dl (33.0-37.0); MONO # 1.4 10*3/uL (0.1-1.0); MONO % 9.6 % (3.0-9.0); NEUT # 10.8 10*3/uL (2.3-7.9); PLATELET COUNT AUTOMATED 127 10*3/uL (130-400); RED BLOOD COUNT 3.91 10*6/uL (4.50-5.90); RED CELL DISTRI WIDTH 13.3 % (0-14.5); WHITE BLOOD COUNT 14.3 10*3/uL (4.8-10.8)
[2021-02-22] MEDS ORDERED: CETIRIZINE HYDR10 MG PO (07:35)
[2021-02-22] MEDS ORDERED: OMEPRAZOLE MAGN20 MG PO (07:36)
[2021-02-22] MEDS ORDERED: TAMSULOSIN HCL0.4 MG PO (07:36)
[2021-02-22] MEDS ORDERED: OMNICEF300 MG PO (10:36)
== END 2021-02-22 10:52 | disposition home or self-care (01) | DRG 872 ==
LOC: ED 17:34 → EDHOLD 20:55
PROVIDERS: Internal Medicine; Physician Assistant; ADMIT Internal Medicine; ATTEND Internal Medicine
DX: A41.9 Sepsis, unspecified organism (principal); N30.01 Acute cystitis with hematuria; R65.20 Severe sepsis without septic shock; D75.89 Other specified diseases of blood and blood-forming organs; R73.9 Hyperglycemia, unspecified; N40.1 Benign prostatic hyperplasia with lower urinary tract symptoms; R33.8 Other retention of urine; I10 Essential (primary) hypertension; K21.9 Gastro-esophageal reflux disease without esophagitis; C67.9 Malignant neoplasm of bladder, unspecified; Z96.641 Presence of right artificial hip joint; I65.21 Occlusion and stenosis of right carotid artery; Z90.49 Acquired absence of other specified parts of digestive tract; Z87.891 Personal history of nicotine dependence; Z83.3 Family history of diabetes mellitus; Z80.8 Family history of malignant neoplasm of other organs or systems; Z79.899 Other long term (current) drug therapy

== ENCOUNTER 2021-02-26 07:49 | Emergency (ER) | payer MEDICARE ==
[~2021-02-26] VITALS: Ht 175.2 cm; Wt 99.8 kg
[~2021-02-26 07:49] MED LIST changes: +CETIRIZINE HYDR10 MG PO; +OMEPRAZOLE MAGN20 MG PO; +OMNICEF300 MG PO
[2021-02-26 08:44] LABS: BASO # 0.1 10*3/uL (0.0-0.1); BASO % 0.9 % (0.0-1.0); EOS # 0.2 10*3/uL (0.0-0.4); EOS % 3.6 % (1.0-4.0); HEMATOCRIT 43.3 % (42.0-52.0); LYMPH # 1.9 10*3/uL (1.3-4.4); LYMPH % 28.7 % (27.0-41.0); MEAN CELL VOLUME 100.2 fl (80.0-94.0); MEAN CORPUSCULAR HGB 33.1 pg (27.0-31.0); MEAN PLATELET VOLUME 10.6 fl (9.6-12.3); MONO # 0.7 10*3/uL (0.1-1.0); MONO % 11.2 % (3.0-9.0); NEUT # 3.6 10*3/uL (2.3-7.9); NEUT % 55.1 % (47.0-73.0); PLATELET COUNT AUTOMATED 202 10*3/uL (130-400); RED BLOOD COUNT 4.32 10*6/uL (4.50-5.90); RED CELL DISTRI WIDTH 12.7 % (0-14.5); WHITE BLOOD COUNT 6.4 10*3/uL (4.8-10.8)
[2021-02-26 08:59] LABS: ALBUMIN 3.4 gm/dl (3.1-4.5); ALKALINE PHOSPHATASE 119 U/L (45-117); BUN 13 mg/dl (7-24); CHLORIDE 106 mmol/L (98-107); CREATININE 0.82 mg/dL (0.70-1.30); POTASSIUM 4.4 mmol/L (3.5-5.1); SGOT/AST 24 IU/L (3-35); SGPT/ALT 50 U/L (12-78); SODIUM 137 mmol/L (136-145); TOTAL PROTEIN 6.8 gm/dL (6.4-8.2)
== END 2021-02-26 09:14 | disposition home or self-care (01) ==
LOC: ED 07:49
PROVIDERS: Emergency Medicine
DX: N50.89 Other specified disorders of the male genital organs (principal); R19.7 Diarrhea, unspecified; N39.0 Urinary tract infection, site not specified; R41.0 Disorientation, unspecified; C67.9 Malignant neoplasm of bladder, unspecified; K21.9 Gastro-esophageal reflux disease without esophagitis; I10 Essential (primary) hypertension; Z79.2 Long term (current) use of antibiotics; Z79.899 Other long term (current) drug therapy; Z90.49 Acquired absence of other specified parts of digestive tract; Z96.641 Presence of right artificial hip joint; Z98.890 Other specified postprocedural states; Z87.891 Personal history of nicotine dependence

== ENCOUNTER 2021-03-04 11:48 | Emergency (ER) | payer MEDICARE ==
[~2021-03-04] VITALS: Wt 104.3 kg
[2021-03-04 14:26] LABS: BASO # 0.1 10*3/uL (0.0-0.1); BASO % 0.5 % (0.0-1.0); EOS # 0.1 10*3/uL (0.0-0.4); EOS % 0.7 % (1.0-4.0); HEMATOCRIT 45.6 % (42.0-52.0); LYMPH # 2.7 10*3/uL (1.3-4.4); LYMPH % 24.7 % (27.0-41.0); MEAN CELL VOLUME 100.4 fl (80.0-94.0); MEAN CORPUSCULAR HGB CONC 32.9 g/dl (33.0-37.0); MEAN PLATELET VOLUME 10.3 fl (9.6-12.3); MONO % 8.6 % (3.0-9.0); NEUT # 7.2 10*3/uL (2.3-7.9); NEUT % 65.2 % (47.0-73.0); PLATELET COUNT AUTOMATED 240 10*3/uL (130-400); RED BLOOD COUNT 4.54 10*6/uL (4.50-5.90)
[2021-03-04 14:40] LABS: BUN 24 mg/dl (7-24); CHLORIDE 105 mmol/L (98-107); CREATININE 1.02 mg/dL (0.70-1.30); POTASSIUM 4.6 mmol/L (3.5-5.1); SODIUM 135 mmol/L (136-145)
== END 2021-03-04 15:11 | disposition short-term general hospital (02) ==
LOC: ED 11:48
PROVIDERS: Emergency Medicine
DX: R33.9 Retention of urine, unspecified (principal); K21.9 Gastro-esophageal reflux disease without esophagitis; I10 Essential (primary) hypertension; Z87.891 Personal history of nicotine dependence; Z79.899 Other long term (current) drug therapy

== ENCOUNTER 2021-03-11 19:46 | Emergency (ER) | payer MEDICARE ==
[~2021-03-11] VITALS: Ht 175.2 cm; Wt 99.8 kg
[2021-03-11 21:37] LABS: BASO # 0.1 10*3/uL (0.0-0.1); BASO % 0.7 % (0.0-1.0); EOS # 0.1 10*3/uL (0.0-0.4); HEMATOCRIT 46.2 % (42.0-52.0); LYMPH # 2.5 10*3/uL (1.3-4.4); LYMPH % 23.6 % (27.0-41.0); MEAN CELL VOLUME 99.6 fl (80.0-94.0); MEAN CORPUSCULAR HGB 33.2 pg (27.0-31.0); MEAN CORPUSCULAR HGB CONC 33.3 g/dl (33.0-37.0); MEAN PLATELET VOLUME 10.8 fl (9.6-12.3); MONO # 1.1 10*3/uL (0.1-1.0); MONO % 10.8 % (3.0-9.0); NEUT # 6.6 10*3/uL (2.3-7.9); NEUT % 63.6 % (47.0-73.0); PLATELET COUNT AUTOMATED 220 10*3/uL (130-400); RED BLOOD COUNT 4.64 10*6/uL (4.50-5.90); RED CELL DISTRI WIDTH 12.8 % (0-14.5); WHITE BLOOD COUNT 10.4 10*3/uL (4.8-10.8)
[2021-03-11 21:52] LABS: ALBUMIN 3.5 gm/dl (3.1-4.5); ALKALINE PHOSPHATASE 125 U/L (45-117); BUN 21 mg/dl (7-24); CHLORIDE 107 mmol/L (98-107); CREATININE 0.93 mg/dL (0.70-1.30); LIPASE 105 U/L (73-393); POTASSIUM 4.5 mmol/L (3.5-5.1); SGOT/AST 26 IU/L (3-35); SGPT/ALT 84 U/L (12-78); SODIUM 139 mmol/L (136-145)
[2021-03-12 00:33] LABS: BILIRUBIN Negative (Negative); BLOOD 3+ (Negative); CLARITY Cloudy (Clear); COLOR Dark Yellow (Yellow); GLUCOSE Negative (Negative); KETONE Trace (Negative); LEUKO ESTERASE 2+ (Negative); NITRITE Negative (Negative); SPECIFIC GRAVITY >= 1.030 (1.001-1.030)
[2021-03-12 00:51] LABS: RBC 31-40 rbc/hpf (0-2)
[2021-03-12 00:52] LABS: BACTERIA 3+; WBC 21-30 wbc/hpf (0-5)
[2021-03-12] MEDS ORDERED: SEPTDS PO (00:56)
[2021-03-21 14:08] LABS: ORGANISM ID Final report (.)
== END 2021-03-12 02:52 | disposition home or self-care (01) ==
LOC: ED 19:46
PROVIDERS: Physician Assistant
DX: T83.83XA Hemorrhage due to genitourinary prosthetic devices, implants and grafts, initial encounter (principal); N39.0 Urinary tract infection, site not specified; Z85.51 Personal history of malignant neoplasm of bladder; Z87.891 Personal history of nicotine dependence; Z96.641 Presence of right artificial hip joint; Z79.899 Other long term (current) drug therapy; Y92.89 Other specified places as the place of occurrence of the external cause

== ENCOUNTER 2021-03-25 19:26 | Emergency (ER) | payer MEDICARE ==
[~2021-03-25] VITALS: Ht 172.7 cm; Wt 83.9 kg
[~2021-03-25 19:26] MED LIST changes: +SEPTDS PO
== END 2021-03-26 00:52 | disposition home or self-care (01) ==
LOC: ED 19:26
DX: K59.00 Constipation, unspecified (principal); I10 Essential (primary) hypertension; K21.9 Gastro-esophageal reflux disease without esophagitis; Z87.891 Personal history of nicotine dependence; Z98.890 Other specified postprocedural states; Z90.49 Acquired absence of other specified parts of digestive tract; Z96.641 Presence of right artificial hip joint; Z79.899 Other long term (current) drug therapy

== ENCOUNTER 2021-04-01 12:00 | Emergency (ER) | payer MEDICARE ==
[~2021-04-01] VITALS: Ht 175.2 cm; Wt 99.8 kg
== END 2021-04-01 14:01 ==
LOC: ED 12:00
DX: K92.1 Melena (principal); R19.7 Diarrhea, unspecified; Z53.21 Procedure and treatment not carried out due to patient leaving prior to being seen by health care provider

== ENCOUNTER 2021-04-02 10:52 | Emergency (ER) | payer MEDICARE ==
[2021-04-02 12:40] LABS: BASO # 0.1 10*3/uL (0.0-0.1); BASO % 0.9 % (0.0-1.0); EOS # 0.1 10*3/uL (0.0-0.4); EOS % 0.8 % (1.0-4.0); HEMATOCRIT 47.2 % (42.0-52.0); LYMPH # 2.2 10*3/uL (1.3-4.4); LYMPH % 27.6 % (27.0-41.0); MEAN CELL VOLUME 98.1 fl (80.0-94.0); MEAN CORPUSCULAR HGB 33.3 pg (27.0-31.0); MEAN CORPUSCULAR HGB CONC 33.9 g/dl (33.0-37.0); MEAN PLATELET VOLUME 10.3 fl (9.6-12.3); MONO # 0.8 10*3/uL (0.1-1.0); MONO % 9.5 % (3.0-9.0); NEUT # 4.8 10*3/uL (2.3-7.9); NEUT % 60.8 % (47.0-73.0); PLATELET COUNT AUTOMATED 196 10*3/uL (130-400); RED BLOOD COUNT 4.81 10*6/uL (4.50-5.90); RED CELL DISTRI WIDTH 12.9 % (0-14.5)
[2021-04-02 13:00] LABS: ALBUMIN 3.8 gm/dl (3.1-4.5); ALKALINE PHOSPHATASE 117 U/L (45-117); BUN 15 mg/dl (7-24); CHLORIDE 104 mmol/L (98-107); CREATININE 1.12 mg/dL (0.70-1.30); POTASSIUM 4.2 mmol/L (3.5-5.1); SGOT/AST 32 IU/L (3-35); SGPT/ALT 69 U/L (12-78); SODIUM 136 mmol/L (136-145)
== END 2021-04-02 14:24 | disposition home or self-care (01) ==
LOC: ED 10:52
PROVIDERS: Physician Assistant
DX: K92.1 Melena (principal); Z79.2 Long term (current) use of antibiotics; Z79.899 Other long term (current) drug therapy; Z90.49 Acquired absence of other specified parts of digestive tract; Z96.641 Presence of right artificial hip joint; Z98.890 Other specified postprocedural states; Z87.891 Personal history of nicotine dependence

== ENCOUNTER 2021-04-06 10:19 | Emergency (ER) | payer MEDICARE ==
[~2021-04-06] VITALS: Ht 175.2 cm; Wt 86.2 kg
== END 2021-04-06 13:30 | disposition left against medical advice (07) ==
LOC: ED 10:19
DX: R19.7 Diarrhea, unspecified (principal); Z53.21 Procedure and treatment not carried out due to patient leaving prior to being seen by health care provider

== ENCOUNTER → 2021-06-16 | Outpatient (CLI) | payer MEDICARE | END | disposition home or self-care (01) | LOC: MRI 06-12 13:00 | PROVIDERS: ATTEND Orthopaedic Surgery | DX: M47.816 Spondylosis without myelopathy or radiculopathy, lumbar region (principal); M48.061 Spinal stenosis, lumbar region without neurogenic claudication; M75.41 Impingement syndrome of right shoulder; M51.36 Other intervertebral disc degeneration, lumbar region; M47.896 Other spondylosis, lumbar region; M25.562 Pain in left knee; M25.511 Pain in right shoulder; M19.011 Primary osteoarthritis, right shoulder; M54.16 Radiculopathy, lumbar region; M16.12 Unilateral primary osteoarthritis, left hip; M17.12 Unilateral primary osteoarthritis, left knee ==

== ENCOUNTER 2021-07-23 17:19 | Emergency (ER) | payer MEDICARE ==
[2021-07-23 18:10] LABS: BILIRUBIN Negative (Negative); BLOOD 1+ (Negative); CLARITY Turbid (Clear); COLOR Yellow (Yellow); GLUCOSE Negative (Negative); KETONE Trace (Negative); LEUKO ESTERASE 3+ (Negative); NITRITE Negative (Negative); UROBILINOGEN 0.2 E.U./dl (0.0-1.0)
[2021-07-23 18:45] LABS: BACTERIA 4+; EPITHELIAL CELLS TNTC; WBC TNTC wbc/hpf (0-5)
== END 2021-07-23 23:23 | disposition home or self-care (01) ==
LOC: ED 17:19
PROVIDERS: Student in an Organized Health Care Education/Training Program
DX: R33.9 Retention of urine, unspecified (principal); Z79.899 Other long term (current) drug therapy; Z87.891 Personal history of nicotine dependence

== ENCOUNTER 2021-08-19 23:35 | Emergency (ER) | payer MEDICARE | END 2021-08-20 01:22 | disposition home or self-care (01) | LOC: ED 23:35 | DX: T83.038A Leakage of other urinary catheter, initial encounter (principal); Z79.899 Other long term (current) drug therapy; Z90.49 Acquired absence of other specified parts of digestive tract; Z98.890 Other specified postprocedural states; Z87.891 Personal history of nicotine dependence; Y92.89 Other specified places as the place of occurrence of the external cause ==

== ENCOUNTER 2021-08-28 16:18 | Emergency (ER) | payer MEDICARE ==
[~2021-08-28] VITALS: Ht 175.2 cm; Wt 97.5 kg
== END 2021-08-28 17:33 | disposition home or self-care (01) ==
LOC: ED 16:18
DX: T83.028A Displacement of other urinary catheter, initial encounter (principal); Z79.899 Other long term (current) drug therapy; Z98.890 Other specified postprocedural states; Z90.49 Acquired absence of other specified parts of digestive tract; Y92.89 Other specified places as the place of occurrence of the external cause; Z87.891 Personal history of nicotine dependence

== ENCOUNTER 2021-09-09 08:56 | Emergency (ER) | payer MEDICARE ==
[~2021-09-09] VITALS: Ht 175.2 cm; Wt 81.6 kg
== END 2021-09-09 10:06 | disposition home or self-care (01) ==
LOC: ED 08:56
DX: T83.028A Displacement of other urinary catheter, initial encounter (principal); K21.9 Gastro-esophageal reflux disease without esophagitis; I10 Essential (primary) hypertension; Z79.899 Other long term (current) drug therapy; Z90.49 Acquired absence of other specified parts of digestive tract; Z98.890 Other specified postprocedural states; Z87.891 Personal history of nicotine dependence; Y92.89 Other specified places as the place of occurrence of the external cause

== ENCOUNTER 2021-09-28 18:23 | Emergency (ER) | payer MEDICARE | END 2021-09-28 19:06 | disposition home or self-care (01) | LOC: ED 18:23 | DX: Z46.6 Encounter for fitting and adjustment of urinary device (principal); Z87.891 Personal history of nicotine dependence; Z90.49 Acquired absence of other specified parts of digestive tract; Z98.890 Other specified postprocedural states; Z79.899 Other long term (current) drug therapy ==

== ENCOUNTER 2021-10-14 23:54 | Emergency (ER) | payer MEDICARE ==
[~2021-10-14] VITALS: Ht 172.7 cm; Wt 95.3 kg
[2021-10-15 00:44] LABS: BILIRUBIN Negative (Negative); BLOOD 3+ (Negative); CLARITY Turbid (Clear); COLOR Yellow (Yellow); GLUCOSE Negative (Negative); KETONE Trace (Negative); LEUKO ESTERASE 3+ (Negative); NITRITE Positive (Negative); SPECIFIC GRAVITY 1.015 (1.001-1.030)
[2021-10-15 00:59] LABS: BACTERIA 4+; RBC 41-50 rbc/hpf (0-2); WBC TNTC wbc/hpf (0-5)
[2021-10-15] MEDS ORDERED: CEFDINIR300 MG PO ×2 (01:37→01:39)
== END 2021-10-15 01:49 | disposition home or self-care (01) ==
LOC: ED 23:54
PROVIDERS: Emergency Medicine
DX: T83.038A Leakage of other urinary catheter, initial encounter (principal); N39.0 Urinary tract infection, site not specified; K21.9 Gastro-esophageal reflux disease without esophagitis; I10 Essential (primary) hypertension; Z79.899 Other long term (current) drug therapy; Z90.49 Acquired absence of other specified parts of digestive tract; Z98.890 Other specified postprocedural states; Z87.891 Personal history of nicotine dependence; Y92.89 Other specified places as the place of occurrence of the external cause

== ENCOUNTER 2021-10-21 07:04 | Emergency (ER) | payer MEDICARE ==
[~2021-10-21 07:04] MED LIST changes: +CEFDINIR300 MG PO
== END 2021-10-21 08:13 | disposition home or self-care (01) ==
LOC: ED 07:04
DX: T83.098A Other mechanical complication of other urinary catheter, initial encounter (principal); Z79.899 Other long term (current) drug therapy; Z90.49 Acquired absence of other specified parts of digestive tract; Z98.890 Other specified postprocedural states; Z87.891 Personal history of nicotine dependence; Y92.89 Other specified places as the place of occurrence of the external cause

== ENCOUNTER 2021-11-03 09:37 | Emergency (ER) | payer MEDICARE ==
[2021-11-03 10:15] LABS: BASO # 0.1 10*3/uL (0.0-0.1); BASO % 0.7 % (0.0-1.0); EOS # 0.4 10*3/uL (0.0-0.4); EOS % 4.8 % (1.0-4.0); HEMATOCRIT 48.6 % (42.0-52.0); LYMPH # 2.8 10*3/uL (1.3-4.4); LYMPH % 32.3 % (27.0-41.0); MEAN CELL VOLUME 99.2 fl (80.0-94.0); MEAN CORPUSCULAR HGB 33.3 pg (27.0-31.0); MEAN CORPUSCULAR HGB CONC 33.5 g/dl (33.0-37.0); MEAN PLATELET VOLUME 10.9 fl (9.6-12.3); MONO % 11.2 % (3.0-9.0); NEUT # 4.4 10*3/uL (2.3-7.9); NEUT % 50.7 % (47.0-73.0); PLATELET COUNT AUTOMATED 200 10*3/uL (130-400); RED CELL DISTRI WIDTH 12.5 % (0-14.5); WHITE BLOOD COUNT 8.8 10*3/uL (4.8-10.8)
[2021-11-03 10:15] LABS: BILIRUBIN Negative (Negative); BLOOD 2+ (Negative); CLARITY Turbid (Clear); COLOR Yellow (Yellow); GLUCOSE Negative (Negative); KETONE Negative (Negative); LEUKO ESTERASE 3+ (Negative); NITRITE Negative (Negative); UROBILINOGEN 0.2 E.U./dl (0.0-1.0)
[2021-11-03 10:31] LABS: ALKALINE PHOSPHATASE 126 U/L (45-117); BUN 12 mg/dl (7-24); CHLORIDE 104 mmol/L (98-107); CREATININE 0.88 mg/dL (0.70-1.30); LIPASE 59 U/L (73-393); SGOT/AST 31 IU/L (3-35); SGPT/ALT 51 U/L (12-78); SODIUM 138 mmol/L (136-145); TOTAL PROTEIN 6.9 gm/dL (6.4-8.2)
[2021-11-03 10:54] LABS: BACTERIA 4+; EPITHELIAL CELLS 21-30; RBC TNTC rbc/hpf (0-2); WBC TNTC wbc/hpf (0-5)
[2021-11-03] MEDS ORDERED: CIPRO500 MG PO (11:07)
== END 2021-11-03 11:22 | disposition home or self-care (01) ==
LOC: ED 09:37
PROVIDERS: Emergency Medicine
DX: R33.9 Retention of urine, unspecified (principal); N39.0 Urinary tract infection, site not specified; Z79.899 Other long term (current) drug therapy; Z90.49 Acquired absence of other specified parts of digestive tract; Z98.890 Other specified postprocedural states; Z87.891 Personal history of nicotine dependence

== ENCOUNTER 2021-11-05 12:57 | Emergency (ER) | payer MEDICARE ==
[~2021-11-05] VITALS: Wt 104.3 kg
[2021-11-05 13:23] LABS: BASO # 0.1 10*3/uL (0.0-0.1); BASO % 1.1 % (0.0-1.0); EOS # 0.3 10*3/uL (0.0-0.4); EOS % 3.5 % (1.0-4.0); HEMATOCRIT 47.7 % (42.0-52.0); LYMPH # 3.1 10*3/uL (1.3-4.4); LYMPH % 32.8 % (27.0-41.0); MEAN CELL VOLUME 98.6 fl (80.0-94.0); MEAN CORPUSCULAR HGB 32.4 pg (27.0-31.0); MEAN CORPUSCULAR HGB CONC 32.9 g/dl (33.0-37.0); MEAN PLATELET VOLUME 10.8 fl (9.6-12.3); MONO % 10.1 % (3.0-9.0); NEUT % 52.2 % (47.0-73.0); PLATELET COUNT AUTOMATED 233 10*3/uL (130-400); RED BLOOD COUNT 4.84 10*6/uL (4.50-5.90); RED CELL DISTRI WIDTH 12.7 % (0-14.5); WHITE BLOOD COUNT 9.5 10*3/uL (4.8-10.8)
[2021-11-05 13:58] LABS: BUN 14 mg/dl (7-24); CHLORIDE 101 mmol/L (98-107); CREATININE 0.94 mg/dL (0.70-1.30); POTASSIUM 4.8 mmol/L (3.5-5.1); SODIUM 134 mmol/L (136-145)
== END 2021-11-05 14:02 | disposition home or self-care (01) ==
LOC: ED 12:57
PROVIDERS: Emergency Medicine
DX: R33.9 Retention of urine, unspecified (principal); Z87.891 Personal history of nicotine dependence; Z90.49 Acquired absence of other specified parts of digestive tract; Z98.890 Other specified postprocedural states

== ENCOUNTER 2021-11-09 15:43 | Emergency (ER) | payer MEDICARE ==
[2021-11-09] MEDS ORDERED: PYRIDIUM100 MG PO (16:32)
[2021-11-09] MEDS ORDERED: DITROPAN XL5 MG PO (16:32)
== END 2021-11-09 16:40 | disposition home or self-care (01) ==
LOC: ED 15:43
DX: T83.038A Leakage of other urinary catheter, initial encounter (principal); K21.9 Gastro-esophageal reflux disease without esophagitis; I10 Essential (primary) hypertension; Z79.899 Other long term (current) drug therapy; Z90.49 Acquired absence of other specified parts of digestive tract; Z98.890 Other specified postprocedural states; Z87.891 Personal history of nicotine dependence; Y92.89 Other specified places as the place of occurrence of the external cause

== ENCOUNTER 2021-11-14 10:51 | Emergency (ER) | payer MEDICARE ==
[~2021-11-14] VITALS: Ht 175.2 cm; Wt 81.6 kg
[~2021-11-14 10:51] MED LIST changes: +DITROPAN XL5 MG PO; +PYRIDIUM100 MG PO
[2021-11-14 12:06] LABS: BILIRUBIN Negative (Negative); BLOOD 2+ (Negative); CLARITY Cloudy (Clear); COLOR Dark Yellow (Yellow); GLUCOSE Negative (Negative); KETONE Negative (Negative); LEUKO ESTERASE 2+ (Negative); NITRITE Positive (Negative)
[2021-11-14 12:12] LABS: BASO # 0.1 10*3/uL (0.0-0.1); BASO % 0.7 % (0.0-1.0); EOS # 0.2 10*3/uL (0.0-0.4); LYMPH # 1.8 10*3/uL (1.3-4.4); LYMPH % 25.8 % (27.0-41.0); MEAN CELL VOLUME 96.8 fl (80.0-94.0); MEAN CORPUSCULAR HGB 32.7 pg (27.0-31.0); MEAN CORPUSCULAR HGB CONC 33.8 g/dl (33.0-37.0); MEAN PLATELET VOLUME 10.7 fl (9.6-12.3); MONO # 0.7 10*3/uL (0.1-1.0); MONO % 10.3 % (3.0-9.0); NEUT # 4.3 10*3/uL (2.3-7.9); NEUT % 59.9 % (47.0-73.0); PLATELET COUNT AUTOMATED 171 10*3/uL (130-400); RED BLOOD COUNT 4.65 10*6/uL (4.50-5.90); RED CELL DISTRI WIDTH 12.4 % (0-14.5); WHITE BLOOD COUNT 7.1 10*3/uL (4.8-10.8)
[2021-11-14 12:16] LABS: RBC 21-30 rbc/hpf (0-2); WBC 16-20 wbc/hpf (0-5)
[2021-11-14 12:17] LABS: BACTERIA 1+; MUCOUS 1+
[2021-11-14 12:29] LABS: ALKALINE PHOSPHATASE 112 U/L (45-117); BUN 12 mg/dl (7-24); CHLORIDE 108 mmol/L (98-107); CREATININE 0.76 mg/dL (0.70-1.30); LIPASE 61 U/L (73-393); POTASSIUM 4.2 mmol/L (3.5-5.1); SGOT/AST 17 IU/L (3-35); SGPT/ALT 30 U/L (12-78); SODIUM 139 mmol/L (136-145); TOTAL PROTEIN 6.3 gm/dL (6.4-8.2)
[2021-11-14] MEDS ORDERED: CEFDINIR300 MG PO (14:35)
== END 2021-11-14 16:14 | disposition home or self-care (01) ==
LOC: ED 10:51
PROVIDERS: Internal Medicine
DX: R30.0 Dysuria (principal); Z79.899 Other long term (current) drug therapy; Z90.49 Acquired absence of other specified parts of digestive tract; Z98.890 Other specified postprocedural states; F17.200 Nicotine dependence, unspecified, uncomplicated

== ENCOUNTER 2021-11-17 19:18 | Emergency (ER) | payer MEDICARE ==
[~2021-11-17] VITALS: Ht 175.2 cm; Wt 95.3 kg
[2021-11-17 20:16] LABS: BASO # 0.1 10*3/uL (0.0-0.1); BASO % 0.9 % (0.0-1.0); EOS # 0.3 10*3/uL (0.0-0.4); EOS % 3.1 % (1.0-4.0); HEMATOCRIT 42.4 % (42.0-52.0); MEAN CORPUSCULAR HGB 32.3 pg (27.0-31.0); MEAN CORPUSCULAR HGB CONC 33.3 g/dl (33.0-37.0); MEAN PLATELET VOLUME 10.8 fl (9.6-12.3); MONO % 11.6 % (3.0-9.0); NEUT # 5.2 10*3/uL (2.3-7.9); NEUT % 61.3 % (47.0-73.0); PLATELET COUNT AUTOMATED 177 10*3/uL (130-400); RED BLOOD COUNT 4.37 10*6/uL (4.50-5.90); RED CELL DISTRI WIDTH 12.5 % (0-14.5); WHITE BLOOD COUNT 8.5 10*3/uL (4.8-10.8)
[2021-11-17 20:35] LABS: BUN 14 mg/dl (7-24); CHLORIDE 110 mmol/L (98-107); CREATININE 0.83 mg/dL (0.70-1.30); POTASSIUM 3.9 mmol/L (3.5-5.1); SODIUM 140 mmol/L (136-145)
[2021-11-17 21:00] LABS: BILIRUBIN 1+ (Negative); BLOOD 3+ (Negative); CLARITY Turbid (Clear); COLOR Orange (Yellow); GLUCOSE Negative (Negative); KETONE Negative (Negative); LEUKO ESTERASE 2+ (Negative); NITRITE Positive (Negative)
[2021-11-17 21:44] LABS: BACTERIA TRACE; EPITHELIAL CELLS 31-40; RBC TNTC rbc/hpf (0-2); WBC TNTC wbc/hpf (0-5); YEAST 2+
[2021-11-17] MEDS ORDERED: CIPRO500 MG PO (21:54)
== END 2021-11-17 22:05 | disposition home or self-care (01) ==
LOC: ED 19:18
PROVIDERS: Internal Medicine
DX: T83.518A Infection and inflammatory reaction due to other urinary catheter, initial encounter (principal); Z79.899 Other long term (current) drug therapy; Z90.49 Acquired absence of other specified parts of digestive tract; Z98.890 Other specified postprocedural states; Z87.891 Personal history of nicotine dependence; Y92.89 Other specified places as the place of occurrence of the external cause

== ENCOUNTER 2021-11-21 02:58 | Emergency (ER) | payer MEDICARE | END 2021-11-21 03:42 | disposition left against medical advice (07) | LOC: ED 02:58 | DX: Z53.21 Procedure and treatment not carried out due to patient leaving prior to being seen by health care provider (principal) ==

== ENCOUNTER → 2022-02-15 | Outpatient (CLI) | payer MEDICARE | END | disposition home or self-care (01) | LOC: LAB 13:03 | PROVIDERS: ATTEND Urology | DX: D40.0 Neoplasm of uncertain behavior of prostate (principal); R53.83 Other fatigue; Z12.5 Encounter for screening for malignant neoplasm of prostate ==

== ENCOUNTER 2022-04-10 15:14 | Emergency (ER) | payer MEDICARE ==
[~2022-04-10] VITALS: Ht 175.2 cm; Wt 93.0 kg
[2022-04-10] MEDS ORDERED: SOF-LAX100 MG PO (18:26)
[2022-04-10] MEDS ORDERED: MIRALAX POWDER17 G1 PO (18:26)
[2022-04-13] MEDS ORDERED: CIPRO500 MG PO (13:40)
[2022-04-13] MEDS ORDERED: VITAMIN D350 MC2 PO (13:41)
== END 2022-04-10 19:50 | disposition home or self-care (01) ==
LOC: ED 15:14
DX: K59.03 Drug induced constipation (principal)

== ENCOUNTER 2022-06-08 19:03 | Emergency (ER) | payer MEDICARE ==
[~2022-06-08] VITALS: Ht 175.2 cm; Wt 81.6 kg
[~2022-06-08 19:03] MED LIST changes: +SOF-LAX100 MG PO; +VITAMIN D350 MC2 PO
[2022-06-08 19:44] LABS: BILIRUBIN Negative (Negative); BLOOD 1+ (Negative); CLARITY Turbid (Clear); COLOR Dark Yellow (Yellow); GLUCOSE Negative (Negative); KETONE Trace (Negative); LEUKO ESTERASE 2+ (Negative); NITRITE Positive (Negative); SPECIFIC GRAVITY >= 1.030 (1.001-1.030)
[2022-06-08 20:08] LABS: BASO # 0.1 10*3/uL (0.0-0.1); BASO % 0.6 % (0.0-1.0); EOS # 0.1 10*3/uL (0.0-0.4); EOS % 1.3 % (1.0-4.0); HEMATOCRIT 41.7 % (42.0-52.0); LYMPH # 2.1 10*3/uL (1.3-4.4); LYMPH % 27.1 % (27.0-41.0); MEAN CORPUSCULAR HGB 33.6 pg (27.0-31.0); MEAN CORPUSCULAR HGB CONC 33.6 g/dl (33.0-37.0); MEAN PLATELET VOLUME 11.1 fl (9.6-12.3); MONO # 0.8 10*3/uL (0.1-1.0); MONO % 10.4 % (3.0-9.0); NEUT # 4.7 10*3/uL (2.3-7.9); NEUT % 60.5 % (47.0-73.0); PLATELET COUNT AUTOMATED 154 10*3/uL (130-400); RED BLOOD COUNT 4.17 10*6/uL (4.50-5.90); RED CELL DISTRI WIDTH 13.2 % (0-14.5); WHITE BLOOD COUNT 7.8 10*3/uL (4.8-10.8)
[2022-06-08 20:23] LABS: BACTERIA 2+; EPITHELIAL CELLS 21-30
[2022-06-08] MEDS ORDERED: CIPRO500 MG PO (20:39)
[2022-06-08 20:53] LABS: ALKALINE PHOSPHATASE 83 U/L (46-116); BUN 14 mg/dl (9-23); CHLORIDE 104 mmol/L (98-107); CREATININE 0.64 mg/dL (0.70-1.30); POTASSIUM 3.6 mmol/L (3.4-5.1); SGPT/ALT 19 U/L (10-49); SODIUM 139 mmol/L (136-145)
[2022-06-08 20:54] LABS: TOTAL PROTEIN 5.6 gm/dL (6.0-8.0)
== END 2022-06-08 20:55 | disposition home or self-care (01) ==
LOC: ED 19:03
PROVIDERS: Nurse Practitioner Family
DX: N39.0 Urinary tract infection, site not specified (principal); Z90.49 Acquired absence of other specified parts of digestive tract; Z98.890 Other specified postprocedural states; Z87.891 Personal history of nicotine dependence; Z79.899 Other long term (current) drug therapy

== ENCOUNTER 2022-08-22 01:21 | Emergency (ER) | payer MEDICARE ==
[~2022-08-22] VITALS: Ht 175.2 cm; Wt 102.1 kg
[2022-08-22 03:09] LABS: BILIRUBIN Negative (Negative); BLOOD Trace-Lysed (Negative); CLARITY Cloudy (Clear); COLOR Yellow (Yellow); GLUCOSE Negative (Negative); KETONE Trace (Negative); LEUKO ESTERASE 2+ (Negative); NITRITE Negative (Negative); SPECIFIC GRAVITY 1.025 (1.001-1.030)
[2022-08-22 03:21] LABS: BACTERIA 1+; MUCOUS 1+; WBC 21-30 wbc/hpf (0-5)
[2022-08-22] MEDS ORDERED: CIPRO500 MG PO (03:39)
== END 2022-08-22 03:50 | disposition home or self-care (01) ==
LOC: ED 01:21
PROVIDERS: Emergency Medicine
DX: N39.0 Urinary tract infection, site not specified (principal); K21.9 Gastro-esophageal reflux disease without esophagitis; I10 Essential (primary) hypertension; N40.0 Benign prostatic hyperplasia without lower urinary tract symptoms; Z68.34 Body mass index [BMI] 34.0-34.9, adult; Z90.49 Acquired absence of other specified parts of digestive tract; Z98.890 Other specified postprocedural states; Z87.891 Personal history of nicotine dependence

== ENCOUNTER 2022-09-02 08:42 | Emergency (ER) | payer MEDICARE ==
[~2022-09-02] VITALS: Ht 175.2 cm; Wt 90.7 kg
[2022-09-02 09:20] LABS: BASO # 0.1 10*3/uL (0.0-0.1); BASO % 1.3 % (0.0-1.0); EOS # 0.2 10*3/uL (0.0-0.4); EOS % 2.8 % (1.0-4.0); HEMATOCRIT 46.3 % (42.0-52.0); LYMPH # 2.3 10*3/uL (1.3-4.4); LYMPH % 29.3 % (27.0-41.0); MEAN CELL VOLUME 100.7 fl (80.0-94.0); MEAN CORPUSCULAR HGB 33.9 pg (27.0-31.0); MEAN CORPUSCULAR HGB CONC 33.7 g/dl (33.0-37.0); MEAN PLATELET VOLUME 10.7 fl (9.6-12.3); MONO # 0.8 10*3/uL (0.1-1.0); MONO % 10.2 % (3.0-9.0); NEUT # 4.5 10*3/uL (2.3-7.9); NEUT % 56.3 % (47.0-73.0); PLATELET COUNT AUTOMATED 175 10*3/uL (130-400); RED CELL DISTRI WIDTH 12.8 % (0-14.5); WHITE BLOOD COUNT 7.9 10*3/uL (4.8-10.8)
[2022-09-02 09:39] LABS: ALKALINE PHOSPHATASE 95 U/L (46-116); BUN 14 mg/dl (9-23); CHLORIDE 104 mmol/L (98-107); SGPT/ALT 17 U/L (10-49); TOTAL PROTEIN 6.4 gm/dL (6.0-8.0)
[2022-09-02 10:12] LABS: BILIRUBIN Negative (Negative); BLOOD Negative (Negative); CLARITY Turbid (Clear); COLOR Yellow (Yellow); GLUCOSE Negative (Negative); KETONE Trace (Negative); LEUKO ESTERASE 2+ (Negative); NITRITE Negative (Negative); UROBILINOGEN 0.2 E.U./dl (0.0-1.0)
[2022-09-02] MEDS ORDERED: VIBRAMYCIN HYC100 MG PO (10:22)
[2022-09-02 10:29] LABS: BACTERIA 3+; CALCIUM OXALATE CRYSTALS 3+; EPITHELIAL CELLS 21-30; WBC 31-40 wbc/hpf (0-5)
[2022-09-03] MEDS ORDERED: CEPHALEXIN500 M1 PO (11:42)
== END 2022-09-02 10:27 | disposition home or self-care (01) ==
LOC: ED 08:42
PROVIDERS: Internal Medicine
DX: N39.0 Urinary tract infection, site not specified (principal); I10 Essential (primary) hypertension; K21.9 Gastro-esophageal reflux disease without esophagitis; Z90.49 Acquired absence of other specified parts of digestive tract; Z98.890 Other specified postprocedural states; Z87.891 Personal history of nicotine dependence

== ENCOUNTER 2022-09-03 09:40 | Emergency (ER) | payer MEDICARE ==
[~2022-09-03] VITALS: Wt 81.6 kg
[~2022-09-03 09:40] MED LIST changes: +VIBRAMYCIN HYC100 MG PO
[2022-09-03 10:40] LABS: BILIRUBIN Negative (Negative); BLOOD 1+ (Negative); CLARITY Turbid (Clear); COLOR Yellow (Yellow); GLUCOSE Negative (Negative); KETONE Negative (Negative); NITRITE Negative (Negative); PH 7.5 (4.5-8.0); UROBILINOGEN 0.2 E.U./dl (0.0-1.0)
[2022-09-03 10:45] LABS: LEUKO ESTERASE 3+ (Negative)
[2022-09-03 10:55] LABS: BACTERIA 3+; WBC TNTC wbc/hpf (0-5)
[2022-09-03] MEDS ORDERED: CEPHALEXIN500 M1 PO (11:42)
== END 2022-09-03 12:17 | disposition home or self-care (01) ==
LOC: ED 09:40
PROVIDERS: Internal Medicine
DX: R30.0 Dysuria (principal); R33.9 Retention of urine, unspecified; I10 Essential (primary) hypertension; K21.9 Gastro-esophageal reflux disease without esophagitis; Z90.49 Acquired absence of other specified parts of digestive tract; Z98.890 Other specified postprocedural states; Z87.891 Personal history of nicotine dependence

== ENCOUNTER 2023-01-19 08:39 | Emergency (ER) | payer MEDICARE ==
[~2023-01-19] VITALS: Ht 175.2 cm; Wt 81.6 kg
[2023-01-19 10:11] LABS: BASO # 0.1 10*3/uL (0.0-0.1); BASO % 1.1 % (0.0-1.0); EOS # 0.2 10*3/uL (0.0-0.4); HEMATOCRIT 47.6 % (42.0-52.0); LYMPH % 30.4 % (27.0-41.0); MEAN CELL VOLUME 99.4 fl (80.0-94.0); MEAN CORPUSCULAR HGB 33.4 pg (27.0-31.0); MEAN CORPUSCULAR HGB CONC 33.6 g/dl (33.0-37.0); MEAN PLATELET VOLUME 10.4 fl (9.6-12.3); MONO # 0.7 10*3/uL (0.1-1.0); MONO % 10.6 % (3.0-9.0); NEUT # 3.6 10*3/uL (2.3-7.9); NEUT % 54.7 % (47.0-73.0); PLATELET COUNT AUTOMATED 185 10*3/uL (130-400); RED BLOOD COUNT 4.79 10*6/uL (4.50-5.90); RED CELL DISTRI WIDTH 12.9 % (0-14.5); WHITE BLOOD COUNT 6.6 10*3/uL (4.8-10.8)
[2023-01-19 10:32] LABS: ALKALINE PHOSPHATASE 100 U/L (46-116); BUN 14 mg/dl (9-23); CHLORIDE 106 mmol/L (98-107); POTASSIUM 4.7 mmol/L (3.4-5.1); SGPT/ALT 21 U/L (10-49)
[2023-01-19] MEDS ORDERED: PREDNISONE20 M1 PO (11:53)
== END 2023-01-19 11:59 | disposition home or self-care (01) ==
LOC: ED 08:39
PROVIDERS: Internal Medicine
DX: M47.819 Spondylosis without myelopathy or radiculopathy, site unspecified (principal); Z85.46 Personal history of malignant neoplasm of prostate; Z79.899 Other long term (current) drug therapy; Z90.49 Acquired absence of other specified parts of digestive tract; Z96.641 Presence of right artificial hip joint; Z87.891 Personal history of nicotine dependence

== ENCOUNTER 2023-04-17 19:42 | Inpatient (IN) | payer MEDICARE ==
[~2023-04-17] VITALS: Ht 175.2 cm; Wt 110.5 kg
[~2023-04-17 19:42] MED LIST changes: +PREDNISONE20 M1 PO
[2023-04-17 19:52] VITALS: BP 153/93
[2023-04-17 20:58] LABS: BASO # 0.1 10*3/uL (0.0-0.1); BASO % 0.7 % (0.0-1.0); EOS # 0.2 10*3/uL (0.0-0.4); EOS % 1.1 % (1.0-4.0); HEMATOCRIT 52.3 % (42.0-52.0); LYMPH # 2.2 10*3/uL (1.3-4.4); LYMPH % 15.8 % (27.0-41.0); MEAN CELL VOLUME 101.4 fl (80.0-94.0); MEAN CORPUSCULAR HGB 35.1 pg (27.0-31.0); MEAN CORPUSCULAR HGB CONC 34.6 g/dl (33.0-37.0); MEAN PLATELET VOLUME 10.4 fl (9.6-12.3); MONO # 1.4 10*3/uL (0.1-1.0); MONO % 9.9 % (3.0-9.0); NEUT # 9.9 10*3/uL (2.3-7.9); NEUT % 72.3 % (47.0-73.0); PLATELET COUNT AUTOMATED 244 10*3/uL (130-400); RED BLOOD COUNT 5.16 10*6/uL (4.50-5.90); RED CELL DISTRI WIDTH 13.2 % (0-14.5); WHITE BLOOD COUNT 13.7 10*3/uL (4.8-10.8)
[2023-04-17 21:38] LABS: POTASSIUM 4.8 mmol/L (3.4-5.1); TOTAL PROTEIN 7.3 gm/dL (6.0-8.0)
[2023-04-17] MEDS ORDERED: FINASTERIDE5 M1 PO (21:45)
[2023-04-18] VITALS (11 sets, daily range): BP systolic 95–150; BP diastolic 40–75
[2023-04-18 01:25] LABS: BILIRUBIN Negative (Negative); BLOOD 2+ (Negative); CLARITY Turbid (Clear); COLOR Yellow (Yellow); GLUCOSE Negative (Negative); KETONE Negative (Negative); LEUKO ESTERASE 3+ (Negative); NITRITE Negative (Negative); PH 5.5 (4.5-8.0)
[2023-04-18 01:37] LABS: BACTERIA 2+; RBC 16-20 rbc/hpf (0-2); WBC TNTC wbc/hpf (0-5)
[2023-04-18 03:19] LABS: BASO # 0.1 10*3/uL (0.0-0.1); BASO % 0.6 % (0.0-1.0); EOS % 0.3 % (1.0-4.0); HEMATOCRIT 45.3 % (42.0-52.0); LYMPH # 1.3 10*3/uL (1.3-4.4); LYMPH % 12.3 % (27.0-41.0); MEAN CELL VOLUME 100.9 fl (80.0-94.0); MEAN CORPUSCULAR HGB 34.7 pg (27.0-31.0); MEAN CORPUSCULAR HGB CONC 34.4 g/dl (33.0-37.0); MEAN PLATELET VOLUME 10.7 fl (9.6-12.3); MONO % 9.5 % (3.0-9.0); NEUT # 8.1 10*3/uL (2.3-7.9); PLATELET COUNT AUTOMATED 171 10*3/uL (130-400); RED BLOOD COUNT 4.49 10*6/uL (4.50-5.90); RED CELL DISTRI WIDTH 13.2 % (0-14.5); WHITE BLOOD COUNT 10.5 10*3/uL (4.8-10.8)
[2023-04-18 03:44] LABS: ALKALINE PHOSPHATASE 110 U/L (46-116); BUN 11 mg/dl (9-23); CHLORIDE 108 mmol/L (98-107); CHOLESTEROL 165 mg/dL (<200); FREE T4 1.03 ng/dl (0.89-1.76); LDL CHOLESTEROL 93 mg/dL (9-159); POTASSIUM 4.4 mmol/L (3.4-5.1); SGPT/ALT 25 U/L (10-49); TOTAL PROTEIN 5.9 gm/dL (6.0-8.0); TRIGLYCERIDES 75 mg/dl (<150)
[2023-04-18 03:45] LABS: VITAMIN D, 25-HYDROXY 29.9 ng/mL (30-100)
[2023-04-19] VITALS (12 sets, daily range): BP systolic 104–156; BP diastolic 45–84
[2023-04-19 05:19] LABS: BUN 11 mg/dl (9-23); CHLORIDE 109 mmol/L (98-107); POTASSIUM 4.6 mmol/L (3.4-5.1)
[2023-04-19 05:58] LABS: BASO # 0.1 10*3/uL (0.0-0.1); BASO % 0.4 % (0.0-1.0); EOS # 0.1 10*3/uL (0.0-0.4); HEMATOCRIT 47.3 % (42.0-52.0); LYMPH # 1.3 10*3/uL (1.3-4.4); LYMPH % 11.7 % (27.0-41.0); MEAN CELL VOLUME 102.6 fl (80.0-94.0); MEAN CORPUSCULAR HGB 35.1 pg (27.0-31.0); MEAN CORPUSCULAR HGB CONC 34.2 g/dl (33.0-37.0); MEAN PLATELET VOLUME 11.3 fl (9.6-12.3); MONO # 0.9 10*3/uL (0.1-1.0); NEUT # 8.9 10*3/uL (2.3-7.9); NEUT % 78.6 % (47.0-73.0); PLATELET COUNT AUTOMATED 161 10*3/uL (130-400); RED BLOOD COUNT 4.61 10*6/uL (4.50-5.90); RED CELL DISTRI WIDTH 13.1 % (0-14.5); WHITE BLOOD COUNT 11.3 10*3/uL (4.8-10.8)
[2023-04-20] VITALS (12 sets, daily range): BP systolic 103–133; BP diastolic 47–56
[2023-04-20 05:12] LABS: BUN 15 mg/dl (9-23); CHLORIDE 110 mmol/L (98-107); POTASSIUM 4.5 mmol/L (3.4-5.1)
[2023-04-20 06:10] LABS: BASO % 0.1 % (0.0-1.0); HEMATOCRIT 48.5 % (42.0-52.0); LYMPH # 0.8 10*3/uL (1.3-4.4); LYMPH % 6.3 % (27.0-41.0); MEAN CELL VOLUME 104.3 fl (80.0-94.0); MEAN CORPUSCULAR HGB 35.1 pg (27.0-31.0); MEAN CORPUSCULAR HGB CONC 33.6 g/dl (33.0-37.0); MEAN PLATELET VOLUME 11.4 fl (9.6-12.3); MONO # 0.7 10*3/uL (0.1-1.0); MONO % 5.1 % (3.0-9.0); NEUT # 11.3 10*3/uL (2.3-7.9); NEUT % 88.2 % (47.0-73.0); PLATELET COUNT AUTOMATED 172 10*3/uL (130-400); RED BLOOD COUNT 4.65 10*6/uL (4.50-5.90); RED CELL DISTRI WIDTH 13.3 % (0-14.5); WHITE BLOOD COUNT 12.8 10*3/uL (4.8-10.8)
[2023-04-20 16:21] LABS: BASO % 0.1 % (0.0-1.0); HEMATOCRIT 48.1 % (42.0-52.0); LYMPH # 0.6 10*3/uL (1.3-4.4); LYMPH % 3.6 % (27.0-41.0); MEAN CELL VOLUME 104.8 fl (80.0-94.0); MEAN CORPUSCULAR HGB 34.6 pg (27.0-31.0); MEAN CORPUSCULAR HGB CONC 33.1 g/dl (33.0-37.0); MEAN PLATELET VOLUME 10.8 fl (9.6-12.3); MONO # 0.9 10*3/uL (0.1-1.0); NEUT # 13.9 10*3/uL (2.3-7.9); NEUT % 89.9 % (47.0-73.0); PLATELET COUNT AUTOMATED 187 10*3/uL (130-400); RED BLOOD COUNT 4.59 10*6/uL (4.50-5.90); RED CELL DISTRI WIDTH 13.4 % (0-14.5); WHITE BLOOD COUNT 15.4 10*3/uL (4.8-10.8)
[2023-04-20 16:35] LABS: ACT PARTIAL THROMBO TIME 27.3 SECONDS (20.0-32.1)
[2023-04-20 16:42] LABS: ALKALINE PHOSPHATASE 98 U/L (46-116); BUN 28 mg/dl (9-23); CHLORIDE 110 mmol/L (98-107); LIPASE 22 U/L (12-53); POTASSIUM 4.9 mmol/L (3.4-5.1); SGPT/ALT 17 U/L (10-49); TOTAL PROTEIN 5.9 gm/dL (6.0-8.0)
[2023-04-20 16:55] LABS: ABG BASE EXCESS -5.1 mmol/L (-2.0-2.0); ARTERIAL BLOOD GAS PH 7.378 (7.35-7.45)
[2023-04-21] VITALS (12 sets, daily range): BP systolic 113–168; BP diastolic 46–65
[2023-04-21 05:37] LABS: BUN 29 mg/dl (9-23); CHLORIDE 112 mmol/L (98-107); POTASSIUM 4.3 mmol/L (3.4-5.1)
[2023-04-21 06:06] LABS: BASO % 0.1 % (0.0-1.0); HEMATOCRIT 46.7 % (42.0-52.0); LYMPH # 1.3 10*3/uL (1.3-4.4); LYMPH % 9.2 % (27.0-41.0); MEAN CELL VOLUME 104.9 fl (80.0-94.0); MEAN CORPUSCULAR HGB 35.5 pg (27.0-31.0); MEAN CORPUSCULAR HGB CONC 33.8 g/dl (33.0-37.0); MEAN PLATELET VOLUME 11.5 fl (9.6-12.3); MONO # 1.2 10*3/uL (0.1-1.0); MONO % 8.6 % (3.0-9.0); NEUT # 11.1 10*3/uL (2.3-7.9); NEUT % 81.7 % (47.0-73.0); PLATELET COUNT AUTOMATED 162 10*3/uL (130-400); RED BLOOD COUNT 4.45 10*6/uL (4.50-5.90); RED CELL DISTRI WIDTH 13.6 % (0-14.5); WHITE BLOOD COUNT 13.6 10*3/uL (4.8-10.8)
[2023-04-22] VITALS (12 sets, daily range): BP systolic 115–177; BP diastolic 49–89
[2023-04-22 06:00] LABS: BUN 22 mg/dl (9-23); CHLORIDE 114 mmol/L (98-107); POTASSIUM 3.9 mmol/L (3.4-5.1)
[2023-04-22 06:21] LABS: BASO # 0.1 10*3/uL (0.0-0.1); BASO % 0.5 % (0.0-1.0); EOS # 0.2 10*3/uL (0.0-0.4); EOS % 1.8 % (1.0-4.0); HEMATOCRIT 44.5 % (42.0-52.0); LYMPH # 1.1 10*3/uL (1.3-4.4); LYMPH % 9.6 % (27.0-41.0); MEAN CELL VOLUME 106.2 fl (80.0-94.0); MEAN CORPUSCULAR HGB 34.4 pg (27.0-31.0); MEAN CORPUSCULAR HGB CONC 32.4 g/dl (33.0-37.0); MEAN PLATELET VOLUME 11.7 fl (9.6-12.3); MONO # 1.3 10*3/uL (0.1-1.0); MONO % 11.3 % (3.0-9.0); NEUT # 8.9 10*3/uL (2.3-7.9); NEUT % 76.3 % (47.0-73.0); PLATELET COUNT AUTOMATED 166 10*3/uL (130-400); RED BLOOD COUNT 4.19 10*6/uL (4.50-5.90); RED CELL DISTRI WIDTH 13.8 % (0-14.5); WHITE BLOOD COUNT 11.7 10*3/uL (4.8-10.8)
[2023-04-23] VITALS (12 sets, daily range): BP systolic 114–192; BP diastolic 33–79
[2023-04-23 06:18] LABS: BASO # 0.1 10*3/uL (0.0-0.1); BASO % 0.5 % (0.0-1.0); EOS # 0.4 10*3/uL (0.0-0.4); LYMPH # 1.4 10*3/uL (1.3-4.4); LYMPH % 12.9 % (27.0-41.0); MEAN CELL VOLUME 105.7 fl (80.0-94.0); MEAN CORPUSCULAR HGB 34.7 pg (27.0-31.0); MEAN CORPUSCULAR HGB CONC 32.8 g/dl (33.0-37.0); MEAN PLATELET VOLUME 11.4 fl (9.6-12.3); MONO # 1.3 10*3/uL (0.1-1.0); MONO % 11.9 % (3.0-9.0); NEUT # 7.8 10*3/uL (2.3-7.9); NEUT % 70.3 % (47.0-73.0); PLATELET COUNT AUTOMATED 154 10*3/uL (130-400); RED BLOOD COUNT 4.35 10*6/uL (4.50-5.90); RED CELL DISTRI WIDTH 13.5 % (0-14.5); WHITE BLOOD COUNT 11.1 10*3/uL (4.8-10.8)
[2023-04-23 06:26] LABS: ALKALINE PHOSPHATASE 107 U/L (46-116); BUN 18 mg/dl (9-23); CHLORIDE 114 mmol/L (98-107); POTASSIUM 3.9 mmol/L (3.4-5.1); SGPT/ALT 43 U/L (10-49); TOTAL PROTEIN 5.3 gm/dL (6.0-8.0)
[2023-04-23 08:10] LABS: ABG BASE EXCESS 0.7 mmol/L (-2.0-2.0); ARTERIAL BLOOD GAS PH 7.429 (7.35-7.45)
[2023-04-24] VITALS (12 sets, daily range): BP systolic 111–140; BP diastolic 43–69
[2023-04-24 06:24] LABS: BASO # 0.1 10*3/uL (0.0-0.1); BASO % 0.5 % (0.0-1.0); EOS # 0.4 10*3/uL (0.0-0.4); EOS % 4.1 % (1.0-4.0); HEMATOCRIT 41.9 % (42.0-52.0); LYMPH # 1.3 10*3/uL (1.3-4.4); LYMPH % 12.6 % (27.0-41.0); MEAN CELL VOLUME 106.1 fl (80.0-94.0); MEAN CORPUSCULAR HGB 34.9 pg (27.0-31.0); MEAN CORPUSCULAR HGB CONC 32.9 g/dl (33.0-37.0); MEAN PLATELET VOLUME 11.2 fl (9.6-12.3); MONO # 1.4 10*3/uL (0.1-1.0); MONO % 13.3 % (3.0-9.0); NEUT # 7.3 10*3/uL (2.3-7.9); NEUT % 68.9 % (47.0-73.0); PLATELET COUNT AUTOMATED 158 10*3/uL (130-400); RED BLOOD COUNT 3.95 10*6/uL (4.50-5.90); RED CELL DISTRI WIDTH 13.4 % (0-14.5); WHITE BLOOD COUNT 10.5 10*3/uL (4.8-10.8)
[2023-04-24 06:35] LABS: BUN 18 mg/dl (9-23); CHLORIDE 115 mmol/L (98-107); CHOLESTEROL 172 mg/dL (<200); LDL CHOLESTEROL 99 mg/dL (9-159); LIPASE 41 U/L (12-53); POTASSIUM 3.9 mmol/L (3.4-5.1); TRIGLYCERIDES 122 mg/dl (<150)
[2023-04-25] VITALS (12 sets, daily range): BP systolic 112–146; BP diastolic 41–65
[2023-04-25 06:03] LABS: ALKALINE PHOSPHATASE 84 U/L (46-116); BUN 21 mg/dl (9-23); CHLORIDE 114 mmol/L (98-107); POTASSIUM 3.7 mmol/L (3.4-5.1); SGPT/ALT 24 U/L (10-49)
[2023-04-25 06:15] LABS: BASO % 0.3 % (0.0-1.0); EOS % 0.3 % (1.0-4.0); HEMATOCRIT 39.6 % (42.0-52.0); LYMPH # 0.9 10*3/uL (1.3-4.4); LYMPH % 8.4 % (27.0-41.0); MEAN CELL VOLUME 105.9 fl (80.0-94.0); MEAN CORPUSCULAR HGB 35.6 pg (27.0-31.0); MEAN CORPUSCULAR HGB CONC 33.6 g/dl (33.0-37.0); MEAN PLATELET VOLUME 11.5 fl (9.6-12.3); MONO # 1.5 10*3/uL (0.1-1.0); NEUT # 8.2 10*3/uL (2.3-7.9); NEUT % 76.4 % (47.0-73.0); PLATELET COUNT AUTOMATED 134 10*3/uL (130-400); RED BLOOD COUNT 3.74 10*6/uL (4.50-5.90); RED CELL DISTRI WIDTH 13.1 % (0-14.5); WHITE BLOOD COUNT 10.7 10*3/uL (4.8-10.8)
[2023-04-25 13:09] LABS: ABG BASE EXCESS 0.2 mmol/L (-2.0-2.0); ARTERIAL BLOOD GAS PH 7.428 (7.35-7.45)
[2023-04-26] VITALS (12 sets, daily range): BP systolic 126–150; BP diastolic 48–66
[2023-04-26 05:55] LABS: ALKALINE PHOSPHATASE 90 U/L (46-116); BUN 18 mg/dl (9-23); CHLORIDE 115 mmol/L (98-107); POTASSIUM 4.1 mmol/L (3.4-5.1); SGPT/ALT 35 U/L (10-49); TOTAL PROTEIN 5.3 gm/dL (6.0-8.0)
[2023-04-26 06:23] LABS: BASO # 0.1 10*3/uL (0.0-0.1); BASO % 0.5 % (0.0-1.0); EOS # 0.3 10*3/uL (0.0-0.4); EOS % 3.6 % (1.0-4.0); HEMATOCRIT 44.6 % (42.0-52.0); LYMPH # 1.4 10*3/uL (1.3-4.4); LYMPH % 14.1 % (27.0-41.0); MEAN CELL VOLUME 104.4 fl (80.0-94.0); MEAN CORPUSCULAR HGB 34.9 pg (27.0-31.0); MEAN CORPUSCULAR HGB CONC 33.4 g/dl (33.0-37.0); MEAN PLATELET VOLUME 11.4 fl (9.6-12.3); MONO # 1.1 10*3/uL (0.1-1.0); MONO % 11.5 % (3.0-9.0); NEUT # 6.6 10*3/uL (2.3-7.9); NEUT % 69.6 % (47.0-73.0); PLATELET COUNT AUTOMATED 127 10*3/uL (130-400); RED BLOOD COUNT 4.27 10*6/uL (4.50-5.90); WHITE BLOOD COUNT 9.6 10*3/uL (4.8-10.8)
[2023-04-27] VITALS (11 sets, daily range): BP systolic 111–148; BP diastolic 45–81
[2023-04-27 06:03] LABS: BASO % 0.4 % (0.0-1.0); EOS # 0.4 10*3/uL (0.0-0.4); EOS % 4.7 % (1.0-4.0); HEMATOCRIT 43.4 % (42.0-52.0); LYMPH # 1.5 10*3/uL (1.3-4.4); LYMPH % 16.6 % (27.0-41.0); MEAN CELL VOLUME 101.9 fl (80.0-94.0); MEAN CORPUSCULAR HGB 35.4 pg (27.0-31.0); MEAN CORPUSCULAR HGB CONC 34.8 g/dl (33.0-37.0); MEAN PLATELET VOLUME 11.1 fl (9.6-12.3); MONO # 0.9 10*3/uL (0.1-1.0); MONO % 9.6 % (3.0-9.0); NEUT # 6.2 10*3/uL (2.3-7.9); NEUT % 67.8 % (47.0-73.0); PLATELET COUNT AUTOMATED 157 10*3/uL (130-400); RED BLOOD COUNT 4.26 10*6/uL (4.50-5.90); RED CELL DISTRI WIDTH 12.7 % (0-14.5); WHITE BLOOD COUNT 9.2 10*3/uL (4.8-10.8)
[2023-04-27 06:40] LABS: ALKALINE PHOSPHATASE 116 U/L (46-116); BUN 13 mg/dl (9-23); CHLORIDE 112 mmol/L (98-107); POTASSIUM 3.6 mmol/L (3.4-5.1); SGPT/ALT 93 U/L (5-49); TOTAL PROTEIN 5.3 gm/dL (6.0-8.0)
[2023-04-28] VITALS (9 sets, daily range): BP systolic 115–140; BP diastolic 46–81
[2023-04-28 06:24] LABS: BASO % 0.4 % (0.0-1.0); EOS # 0.4 10*3/uL (0.0-0.4); EOS % 4.2 % (1.0-4.0); HEMATOCRIT 41.8 % (42.0-52.0); LYMPH # 1.5 10*3/uL (1.3-4.4); LYMPH % 15.6 % (27.0-41.0); MEAN CELL VOLUME 102.5 fl (80.0-94.0); MEAN CORPUSCULAR HGB 34.6 pg (27.0-31.0); MEAN CORPUSCULAR HGB CONC 33.7 g/dl (33.0-37.0); MEAN PLATELET VOLUME 11.4 fl (9.6-12.3); MONO # 0.8 10*3/uL (0.1-1.0); MONO % 8.6 % (3.0-9.0); NEUT # 6.7 10*3/uL (2.3-7.9); NEUT % 70.7 % (47.0-73.0); PLATELET COUNT AUTOMATED 160 10*3/uL (130-400); RED BLOOD COUNT 4.08 10*6/uL (4.50-5.90); RED CELL DISTRI WIDTH 12.8 % (0-14.5); WHITE BLOOD COUNT 9.5 10*3/uL (4.8-10.8)
[2023-04-28 06:57] LABS: ALKALINE PHOSPHATASE 132 U/L (46-116); BUN 9 mg/dl (9-23); CHLORIDE 111 mmol/L (98-107); POTASSIUM 3.8 mmol/L (3.4-5.1); SGPT/ALT 110 U/L (5-49); TOTAL PROTEIN 4.9 gm/dL (6.0-8.0)
[2023-04-29] VITALS (11 sets, daily range): BP systolic 110–173; BP diastolic 34–79
[2023-04-29 06:20] LABS: HEMATOCRIT 41.3 % (42.0-52.0); MEAN CELL VOLUME 103.5 fl (80.0-94.0); MEAN CORPUSCULAR HGB 34.3 pg (27.0-31.0); MEAN CORPUSCULAR HGB CONC 33.2 g/dl (33.0-37.0); MEAN PLATELET VOLUME 11.8 fl (9.6-12.3); PLATELET COUNT AUTOMATED 140 10*3/uL (130-400); RED BLOOD COUNT 3.99 10*6/uL (4.50-5.90); RED CELL DISTRI WIDTH 12.9 % (0-14.5); WHITE BLOOD COUNT 11.3 10*3/uL (4.8-10.8)
[2023-04-29 06:43] LABS: ALKALINE PHOSPHATASE 136 U/L (46-116); BUN 10 mg/dl (9-23); CHLORIDE 111 mmol/L (98-107); POTASSIUM 3.7 mmol/L (3.4-5.1); SGPT/ALT 90 U/L (5-49)
[2023-04-29 07:39] LABS: MANUAL DIFF REFLEX YES
[2023-04-29 07:41] LABS: PLATELET SUFFICIENCY NORMAL (NORMAL); TOTAL CELLS COUNTED 100 #CELLS
[2023-04-30] VITALS: BP 124/51
[2023-04-30 02:20] VITALS: BP 136/55
[2023-04-30 04:00] VITALS: BP 163/67
[2023-04-30 06:25] LABS: ALKALINE PHOSPHATASE 141 U/L (46-116); BUN 10 mg/dl (9-23); CHLORIDE 110 mmol/L (98-107); POTASSIUM 3.5 mmol/L (3.4-5.1); SGPT/ALT 71 U/L (5-49); TOTAL PROTEIN 5.6 gm/dL (6.0-8.0)
[2023-04-30 06:43] LABS: HEMATOCRIT 43.4 % (42.0-52.0); MEAN CELL VOLUME 100.9 fl (80.0-94.0); MEAN CORPUSCULAR HGB 34.4 pg (27.0-31.0); MEAN CORPUSCULAR HGB CONC 34.1 g/dl (33.0-37.0); MEAN PLATELET VOLUME 11.8 fl (9.6-12.3); RED CELL DISTRI WIDTH 13.1 % (0-14.5); WHITE BLOOD COUNT 18.1 10*3/uL (4.8-10.8)
[2023-04-30 06:44] LABS: MANUAL DIFF REFLEX YES; PLATELET COUNT AUTOMATED 265 10*3/uL (130-400)
[2023-04-30 08:00] VITALS: BP 157/73
[2023-04-30 08:02] LABS: BASOPHILS 1 % (0-1); TOTAL CELLS COUNTED 100 #CELLS
[2023-04-30 08:03] LABS: BURR CELLS FEW; PLATELET SUFFICIENCY NORMAL (NORMAL); POLYCHROMASIA SLIGHT; TOXIC GRANULATION SLIGHT
[2023-04-30 11:22] LABS: BILIRUBIN Negative (Negative); BLOOD 2+ (Negative); CLARITY Cloudy (Clear); COLOR Dark Yellow (Yellow); GLUCOSE Negative (Negative); KETONE 2+ (Negative); LEUKO ESTERASE Trace (Negative); NITRITE Negative (Negative); SPECIFIC GRAVITY 1.025 (1.001-1.030)
[2023-04-30 11:34] LABS: EPITHELIAL CELLS 0-2; RBC 16-20 rbc/hpf (0-2)
[2023-04-30 11:35] LABS: BACTERIA 2+
[2023-04-30 12:00] VITALS: BP 139/60
[2023-04-30 16:00] VITALS: BP 131/66
== END 2023-04-30 16:56 | disposition hospice, inpatient (51) | DRG 870 ==
LOC: ED 19:42 → ICCU 04-18 02:13 → 5E 04-18 02:13 → EDHOLD 04-18 02:13 → 5E 04-18 03:00 → ICCU 04-18 07:38
PROVIDERS: Family Medicine; Internal Medicine; Student in an Organized Health Care Education/Training Program; ADMIT Internal Medicine; ATTEND Internal Medicine
PROC: 5A1955Z Respiratory Ventilation, Greater than 96 Consecutive Hours (ICD-10-PCS; principal; 2023-04-20)
PROC: 0BH17EZ Insertion of Endotracheal Airway into Trachea, Via Natural or Artificial Opening (ICD-10-PCS; 2023-04-20)
PROC: 02HV33Z Insertion of Infusion Device into Superior Vena Cava, Percutaneous Approach (ICD-10-PCS; 2023-04-20)
PROC: B548ZZA Ultrasonography of Superior Vena Cava, Guidance (ICD-10-PCS; 2023-04-20)
DX: A41.9 Sepsis, unspecified organism (principal); G93.41 Metabolic encephalopathy; N17.0 Acute kidney failure with tubular necrosis; J69.0 Pneumonitis due to inhalation of food and vomit; E43 Unspecified severe protein-calorie malnutrition; J96.01 Acute respiratory failure with hypoxia; N30.01 Acute cystitis with hematuria; F10.939 Alcohol use, unspecified with withdrawal, unspecified; E87.0 Hyperosmolality and hypernatremia; R65.20 Severe sepsis without septic shock; K21.9 Gastro-esophageal reflux disease without esophagitis; Z96.641 Presence of right artificial hip joint; N18.31 Chronic kidney disease, stage 3a; D75.1 Secondary polycythemia; N40.1 Benign prostatic hyperplasia with lower urinary tract symptoms; R73.9 Hyperglycemia, unspecified; R35.0 Frequency of micturition; C61 Malignant neoplasm of prostate; I12.9 Hypertensive chronic kidney disease with stage 1 through stage 4 chronic kidney disease, or unspecified chronic kidney disease; R33.8 Other retention of urine; E83.39 Other disorders of phosphorus metabolism; Z66 Do not resuscitate; Z90.49 Acquired absence of other specified parts of digestive tract; Z85.46 Personal history of malignant neoplasm of prostate; Z85.51 Personal history of malignant neoplasm of bladder; Z97.8 Presence of other specified devices; Z51.5 Encounter for palliative care; Z68.36 Body mass index [BMI] 36.0-36.9, adult

== ENCOUNTER 2023-04-30 16:56 | Inpatient (IN) | payer OTHER ==
[~2023-04-30] VITALS: Ht 175.3 cm; Wt 110.5 kg
[~2023-04-30 16:56] MED LIST changes: +FINASTERIDE5 M1 PO
[2023-04-30 17:25] VITALS: BP 131/66
[2023-04-30 20:00] VITALS: BP 146/57
[2023-05-01 04:00] VITALS: BP 148/63
[2023-05-01 08:00] VITALS: BP 156/71
[2023-05-01 16:00] VITALS: BP 150/71
[2023-05-02] VITALS: BP 155/54
[2023-05-02 08:00] VITALS: BP 153/68
[2023-05-02 16:00] VITALS: BP 152/57
[2023-05-03] VITALS: BP 152/50
[2023-05-03 08:00] VITALS: BP 154/70
[2023-05-03 16:00] VITALS: BP 124/45
[2023-05-03 20:00] VITALS: BP 140/53
[2023-05-04 08:00] VITALS: BP 130/51
[2023-05-04 16:00] VITALS: BP 133/47
[2023-05-04 20:00] VITALS: BP 148/69
[2023-05-05 08:00] VITALS: BP 137/62
[2023-05-05 14:00] VITALS: BP 138/85
[2023-05-05 20:00] VITALS: BP 132/47
[2023-05-06 04:00] VITALS: BP 130/53
[2023-05-06 08:00] VITALS: BP 122/77
[2023-05-06 12:00] VITALS: BP 141/43
[2023-05-06 16:00] VITALS: BP 143/69
[2023-05-06 20:00] VITALS: BP 143/61
[2023-05-07] VITALS: BP 133/88
[2023-05-07 07:53] VITALS: BP 86/74
[2023-05-07 12:09] VITALS: BP 148/57
[2023-05-07] MEDS ORDERED: LORAZEPAM0.5 M1 SL ×2 (14:57)
[2023-05-07] MEDS ORDERED: ATROPINE SULFATE SL (14:57)
[2023-05-07] MEDS ORDERED: MORPHINE S10 MG/0.2 SL ×2 (14:57)
== END 2023-05-07 17:45 | disposition hospice, inpatient (51) | DRG 871 ==
LOC: ICCU 16:56 → 5E 05-05 13:39
PROVIDERS: ADMIT Internal Medicine; ATTEND Internal Medicine
DX: A41.9 Sepsis, unspecified organism (principal); E43 Unspecified severe protein-calorie malnutrition; N17.0 Acute kidney failure with tubular necrosis; J69.0 Pneumonitis due to inhalation of food and vomit; G93.41 Metabolic encephalopathy; F10.931 Alcohol use, unspecified with withdrawal delirium; N30.01 Acute cystitis with hematuria; E87.0 Hyperosmolality and hypernatremia; R65.20 Severe sepsis without septic shock; F03.90 Unspecified dementia, unspecified severity, without behavioral disturbance, psychotic disturbance, mood disturbance, and anxiety; R73.9 Hyperglycemia, unspecified; D75.1 Secondary polycythemia; D75.89 Other specified diseases of blood and blood-forming organs; D72.821 Monocytosis (symptomatic); R33.9 Retention of urine, unspecified; E83.39 Other disorders of phosphorus metabolism; I10 Essential (primary) hypertension; Z66 Do not resuscitate; Z51.5 Encounter for palliative care; Z68.34 Body mass index [BMI] 34.0-34.9, adult